=== PATIENT | male | born 1945 | race Caucasian/White ===

== ENCOUNTER 2020-04-14 10:16 | Emergency (ER) | payer MEDICARE, SELFPAY ==
[2020-04-14 10:19] VITALS: PULSE 125; RESP 28; TEMP 36.4; O2SAT 98; BMI 22.5
--- NOTE | 2020-04-14 10:23 | XR_ITS ---
WS: [id number] XR chest 1V portable [id number] REASON FOR EXAM: dyspnea FINDINGS: Comparisons were made to May 11, 2019. The heart mediastinum were normal. The lung rangel are adequately aerated No pneumonia, pleural effusion, pulmonary edema, or pneumothorax. XR/XR chest 1V portable [id number] IMPRESSION: Negative chest.
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
[2020-04-14 10:28] VITALS: O2SAT 96
[2020-04-14 10:32] VITALS: PULSE 105; RESP 26; O2SAT 98
[2020-04-14] MEDS: ipratropium-albuterol 3 mL Neb INHALATION ×2 (10:32)
[2020-04-14 10:35] LABS: Basophils % 0.5 %; Eosinophils # 0.1 10^3/uL (0.0-0.8); Eosinophils % 0.7 %; Hematocrit 44.2 % (42.0-52.0); Hemoglobin 14.6 g/dL (11.7-16.6); Lymphocytes # 1.2 10^3/uL (0.8-4.8); Mean Corpuscular Volume 90.9 fL (80-94); Mean Platelet Volume 10.1 fL (7.4-10.4); Monocytes # 0.5 10^3/uL (0.2-0.9); Monocytes % 6.5 %; Neutrophils # 6.3 10^3/uL (1.8-7.7); Neutrophils % 76.6 %; Nucleated Red Blood Cells % 0 %; Platelet Count 263 10^3/cmm (130-400); Red Blood Count 4.86 10^6/uL (4.1-5.3); White Blood Count 8.2 10^3/uL (4.0-10.0)
[2020-04-14 10:40] VITALS: PULSE 102; RESP 20; O2SAT 100
[2020-04-14 10:42] VITALS: PULSE 103
--- NOTE | 2020-04-14 10:46 | PC.NURSE ---
pt upset and yanking mask and wires off. pt verbally abusive towards staff saying let me just get the fuck out of here . pt's IV removed. Pt signed AMA paperwork. ER physician notified.
[2020-04-14 10:49] LABS: Lactic Sepsis W/Reflex 1.8 mmol/L (0.5-2.2)
== END 2020-04-14 10:49 | disposition left against medical advice (07) ==
LOC: ER 05-08 05:30
PROVIDERS: Emergency Provider Family Medicine
DX: R06.02 Shortness of breath (principal); R07.9 Chest pain, unspecified; R05 Cough; J44.9 Chronic obstructive pulmonary disease, unspecified; Z87.891 Personal history of nicotine dependence; Z53.21 Procedure and treatment not carried out due to patient leaving prior to being seen by health care provider
CPT/HCPCS: 12345; 71045; 83605; 85025; 87040; 94640; 94660; 99283

== ENCOUNTER 2020-12-26 12:42 | Outpatient (CLI) | payer MEDICARE, SELFPAY ==
--- NOTE | 2020-12-26 13:01 | MR_ITS ---
WS: [id number] MRA ANGIOGRAPHY [place] OF [place] HISTORY: TIA COMPARISON: None available. TECHNIQUE: 3-D MR angiography is performed of the [place] of [place]. All images are reviewed including source images. Distal vertebral and basilar arteries are intact with no significant stenosis or plaque. Posterior ce rebral arteries are normal course and caliber. Posterior communicating arteries are both patent. Intracranial portion of the internal carotid arteries are normal course and caliber. No significant a therosclerosis, stenosis or aneurysm identified. There is a tiny protrusion from the distal LEFT intr acranial ICA near the supraclinoid carotid. Similar as to 07/28/2015 CT exam. Stable in size and may r epresent a very tiny aneurysm. Due to its small size this is difficult to quantify or classify furthe r. Middle and anterior cerebral arteries are both patent with no significant disease. Anterior commun icating artery is also normal. Mild cerebral atrophy. MR/MR angio head wo con [id number] IMPRESSION: No occlusions or significant stenosis or aneurysm.
--- NOTE | 2020-12-26 13:01 | MR_ITS ---
WS: [id number] MRA CAROTID ARTERIES HISTORY: TIA COMPARISON: None available. TECHNIQUE: MRA is performed without intravenous gadolinium. MIP and source images are reviewed. Quality of this examination is limited without IV contrast. Vertebral arteries appear to be intact wi th no occlusion. The proximal and distal vertebral arteries are not included. Right: Very limited evaluation of the carotid arteries. Grossly no occlusion is evident. There is sig nificant venous overlapping. Small amount of plaque at the bifurcation is probably present but no hig h-grade stenosis. Left: Very limited evaluation of the carotid arteries. No abnormality or stenosis identified. Only a small portion of the vertebral arteries are imaged. MR/MR angio neck wo con [id number] IMPRESSION: 1. Significantly limited evaluation of the carotid arteries and vertebral ho edd due to [id number] imaging only. 2. No high-grade stenosis identified at the bifurcations.
== END 2020-12-26 12:43 | disposition home or self-care (01) ==
LOC: RADSHAW 12:51
PROVIDERS: PCP Physician Assistant; Visit Provider Physician Assistant
DX: G45.9 Transient cerebral ischemic attack, unspecified (principal)
CPT/HCPCS: 70544; 70547

== ENCOUNTER 2021-03-16 20:09 | Emergency (ER) | payer MEDICARE, SELFPAY ==
[2021-03-16 21:05] VITALS: BP 90/59; PULSE 88; RESP 16; TEMP 36.7; O2SAT 94; BMI 21.9
--- NOTE | 2021-03-16 21:27 | CTR_ITS ---
PROCEDURE INFORMATION: Exam: CT Lumbar Spine Without Contrast Exam date and time: 03/16/2021 9:35 PM Age: 76 years old Clinical indication: Prior surgery; Patient HX: Chronic low back pain. History of back surgery. TECHNIQUE: Imaging protocol: Computed tomography images of the lumbar spine without contrast. COMPARISON: No relevant prior studies available. RADIATION DOSE METRICS: Total DLP (mGy-cm): 1965.46 FINDINGS: Vertebrae: There are 5 lumbar type vertebral bodies. There is normal vertebral body alignment. Schmorl's node at the superior endplate of L4. There are normal vertebral body heights. There is severe disc space narrowing throughout the lumbar spine. No fracture. T12-L1: Broad-based disc protrusion mildly narrows the central canal. No foraminal stenosis. L1-L2: There is mild canal stenosis secondary to disc protrusion plus osteophyte formation. Osteophyte formation severely narrows the right neural foramen. L2-L3: Mild-moderate canal stenosis secondary to broad-based disc protrusion plus facet and ligamentum flavum hypertrophy. Facet hypertrophy and endplate hypertrophy result in moderate right neural foraminal stenosis. L3-L4: Broad-based disc protrusion results in moderate to severe canal stenosis. Facet hypertrophy results in mild-moderate bilateral neural foraminal narrowing. L4-L5: Facet hypertrophy plus endplate hypertrophy and disc protrusion result in moderate canal stenosis. Facet hypertrophy results in severe left and mild right neural foraminal narrowing. L5-S1: Disc plus osteophyte result in mild-moderate canal stenosis. Facet hypertrophy results in moderate bilateral foraminal narrowing. Soft tissues: Unremarkable. CT/CT lumbar spine wo con* [id number] IMPRESSION: Severe degenerative disc disease. No fracture. Radiation Dose CTDIVOL = (mGy): DLP = 1966.46 (mGy-cm)
[2021-03-16 21:47] VITALS: BP 141/88; PULSE 90; RESP 18; TEMP 36.7; O2SAT 96
[2021-03-16] MEDS: dexamethasone 10 mg/mL INJ IVP (21:54)
[2021-03-16 21:55] VITALS: RESP 18; O2SAT 96
[2021-03-16] MEDS: morphine 4 mg/mL SDV 1 mL IVP (21:55)
[2021-03-16 22:02] VITALS: BP 123/72; PULSE 90; RESP 18; TEMP 36.7; O2SAT 96
[2021-03-16 22:08] LABS: Basophils # 0.1 10^3/uL (0.0-0.1); Basophils % 0.5 %; Eosinophils # 0.1 10^3/uL (0.0-0.8); Eosinophils % 0.8 %; Hematocrit 47.5 % (42.0-52.0); Hemoglobin 15.3 g/dL (11.7-16.6); Lymphocytes # 1.5 10^3/uL (0.8-4.8); Lymphocytes % 16.2 %; Mean Corpuscular HGB Conc 32.2 g/dL (30.0-36.0); Mean Corpuscular Hemoglobin 29.4 pg (28.0-34.0); Mean Corpuscular Volume 91.3 fL (80-94); Mean Platelet Volume 9.9 fL (7.4-10.4); Monocytes # 0.7 10^3/uL (0.2-0.9); Monocytes % 7.8 %; Neutrophils # 6.76 10^3/uL (1.8-7.7); Neutrophils % 74.3 %; Nucleated Red Blood Cells % 0 %; Platelet Count 243 10^3/cmm (130-400); Red Cell Distribution Width 14.6 % (12.1-15.1); White Blood Count 9.1 10^3/uL (4.0-10.0)
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
[2021-03-16 22:28] LABS: Alanine Aminotransferase 12 U/L (0-41); Albumin Level 4.5 g/dL (3.5-5.2); Alkaline Phosphatase 47 IU/L (40-130); Aspartate Amino Transferase 13 U/L (0-40); Blood Urea Nitrogen 17 mg/dL (8-23); Calcium 8.8 mg/dL (8.5-10.5); Carbon Dioxide 21 mmol/L (22-29); Chloride 104 mmol/L (98-107); Globulin 2.5 g/dL (1.3-4.6); Glucose 73 mg/dL (65-115); Osmolality Calculated 288 mOsm/kg (285-295); Sodium 139 mmol/L (136-145); Total Bilirubin 0.3 mg/dL (0.15-1.2)
[2021-03-16 22:33] LABS: Anion Gap 18.2 (5-19); Potassium 4.2 mmol/L (3.5-5.1)
[2021-03-16 23:00] VITALS: BP 98/54; PULSE 90; RESP 18; TEMP 36.7; O2SAT 96
[2021-03-16 23:06] VITALS: BP 98/54; PULSE 90; RESP 18; TEMP 36.7; O2SAT 96
== END 2021-03-16 23:08 | disposition home or self-care (01) ==
PROVIDERS: Emergency Provider Emergency Medicine; PCP Physician Assistant
DX: M54.5 Low back pain (principal); F32.9 Major depressive disorder, single episode, unspecified; J44.9 Chronic obstructive pulmonary disease, unspecified; Z87.891 Personal history of nicotine dependence
CPT/HCPCS: 72131; 80053; 85025; 96374; 96375; 99283; J1100; J2270

== ENCOUNTER 2021-03-24 11:32 | Emergency (ER) | payer MEDICARE, SELFPAY ==
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
--- NOTE | 2021-03-24 12:22 | USCV_ITS ---
JohnieRolando Age: 76 Gender: M : 1945 Exam Date: 03/24/2021 12:38 Ordering Phys: Tamara Andrew Technologist: Sharda Kate Exam Location: [facility] [place]_ Indication: LLE PAIN HISTORY: Lower extremity pain. PROCEDURES: Venous duplex imaging was performed in only the left lower extremity. The following venous structures were evaluated: common femoral vein, profunda vein, proximal portion of the greater saphenous vein, superficial femoral vein, and the popliteal vein. In addition, the posterior tibial and peroneal trunk were evaluated. Serial compression, augmentation maneuvers, and spectral Doppler flow evaluation were performed. FINDINGS: Normal 2-D Doppler and augmentation and compressibility throughout the lower extremity venous structures. Additional imaging through the proximal calf veins also reveals no thrombus. Limited evaluation of the greater saphenous vein is patent with no thrombus. CONCLUSIONS No DVT left lower extremity. Dr. Riddhi Jackson DO (Electronically Signed) Final Date: 24 Mar 2021 14:12 S
--- NOTE | 2021-03-24 12:22 | USCV_ITS ---
Johnie Rolando Age: 76 Gender: M : 1945 Exam Date: 03/24/2021 12:44 Ordering Phys: Tamara Andrew Technologist: Sharda Kate Exam Location: [facility] [place]_ Indication: LLE PAIN Risk Factors: Previous Vascular Surgery: RIGHT LEFT BP: 130.0 / BP: 135.0/ 0 0 Waveform Velocity (cm/s) Velocity (cm/s) Waveform Iliac Prox 104.4 Triphasic Iliac Mid 101.3 Triphasic Iliac Distal 109.3 Triphasic IMPLEMENTATION DIRECTOR Triphasic 104.6 SFA Prox 83.5 Triphasic SFA Mid 69.5 Triphasic SFA Dist 62.9 Triphasic POP 29.9 Biphasic ATTRACTION WORKER 33.1 Biphasic DPA 37.4 Biphasic VIOLETA 0.9 FINDINGS LT ATTRACTION WORKER 125 LT DPA 122 Mild to moderate diffuse plaques in the popliteal and infrapopliteal vessels on the left side CONCLUSIONS 1. Abnormal resting VIOLETA on the left side, suggestive of mild peripheral artery disease. 2. Mild to moderate diffuse plaques in the popliteal and infrapopliteal vessels on the left side. Dr Tamiko Maria MD [facility] (Electronically Signed) Final Date: 27 Mar 2021 12:13 S
[2021-03-24 12:23] VITALS: BP 96/79; PULSE 86; RESP 16; TEMP 36.6; O2SAT 98
[2021-03-24 12:27] VITALS: BMI 21.9
[2021-03-24 12:45] VITALS: BP 135/80; PULSE 86; RESP 16; O2SAT 97
== END 2021-03-24 13:08 | disposition home or self-care (01) ==
PROVIDERS: Emergency Provider Physician Assistant; PCP Physician Assistant
DX: M79.605 Pain in left leg (principal); J44.9 Chronic obstructive pulmonary disease, unspecified; Z87.891 Personal history of nicotine dependence
CPT/HCPCS: 93926; 93971; 99282

== ENCOUNTER 2021-03-26 09:45 | Emergency (ER) | payer MEDICARE, SELFPAY ==
[2021-03-26 09:46] VITALS: PULSE 76; RESP 22; O2SAT 100; BMI 21.9
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
[2021-03-26] MEDS: ketorolac 30 mg/mL INJ IM (10:07)
[2021-03-26] MEDS: dexamethasone 10 mg/mL INJ IM (10:07)
[2021-03-26] MEDS: orphenadrine 30 mg/mL Inj 2 mL 60 MG IM (10:07)
[2021-03-26] MEDS: HYDROcodone-acetaminophen 5-325 mg Tablet 1 TAB PO (10:07)
[2021-03-26 11:03] VITALS: BP 126/83; PULSE 76; O2SAT 96
== END 2021-03-26 11:04 | disposition home or self-care (01) ==
PROVIDERS: Emergency Provider Emergency Medicine; PCP Physician Assistant
DX: M54.32 Sciatica, left side (principal); J44.9 Chronic obstructive pulmonary disease, unspecified; Z87.891 Personal history of nicotine dependence
CPT/HCPCS: 96372; 99283; J1100; J1885; J2360

== ENCOUNTER 2021-03-27 12:27 | Emergency (ER) | payer MEDICARE, SELFPAY ==
[2021-03-27 12:36] VITALS: BP 120/76; PULSE 86; RESP 40; TEMP 36.8; O2SAT 99; BMI 21.9
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
[2021-03-27 13:14] VITALS: RESP 18
[2021-03-27] MEDS: morphine 4 mg/mL SDV 1 mL IM (13:14)
[2021-03-27] MEDS: ketorolac 30 mg/mL INJ IM (13:14)
[2021-03-27] MEDS: dexamethasone 10 mg/mL INJ IM (13:15)
[2021-03-27] MEDS: orphenadrine 30 mg/mL Inj 2 mL 60 MG IM (13:15)
[2021-03-27 13:50] VITALS: BP 121/70; PULSE 82; RESP 18; O2SAT 99
== END 2021-03-27 13:52 | disposition home or self-care (01) ==
PROVIDERS: Emergency Provider Family Medicine; PCP Physician Assistant
DX: M54.30 Sciatica, unspecified side (principal); J44.9 Chronic obstructive pulmonary disease, unspecified; Z87.891 Personal history of nicotine dependence
CPT/HCPCS: 96372; 99283; J1100; J1885; J2270; J2360

== ENCOUNTER 2021-04-01 10:53 | Emergency (ER) | payer MEDICARE, SELFPAY ==
[2021-04-01 11:04] VITALS: BP 119/77; PULSE 80; RESP 29; TEMP 36.4; O2SAT 97; BMI 21.9
--- NOTE | 2021-04-01 11:24 | XRR_ITS ---
PROCEDURE INFORMATION: Exam: XR Chest Exam date and time: 04/01/2021 11:26 AM Age: 76 years old Clinical indication: Sternal or substernal pain; Additional info: Sob/anxiety, chest pain and pain in left arm. TECHNIQUE: Imaging protocol: XR of the chest. Views: 1 view. COMPARISON: CR XR chest 1V portable [id number] 04/14/2020 10:34 AM FINDINGS: Lungs: Unremarkable. No consolidation. Pleural spaces: Unremarkable. No pleural effusion. No pneumothorax. Heart/Mediastinum: Unremarkable. No cardiomegaly. Bones/joints: Unremarkable. XR/XR chest 1V portable [id number] IMPRESSION: No acute findings.
--- NOTE | 2021-04-01 11:25 | ECG_ITS ---
[facility] Test Date: 2021-04-01 Pat Name: Rolando Jett Department: Room: Gender: Male Fiscal Services Manager: : 1945 Requested By: Josafat Otero Order Number: [id number] Reading MD: NIURKA EWING Measurements Intervals [place] Rate: 68 P: 64 NM: 173 QRS: 38 QRSD: 88 T: 45 QT: 356 QTc: 381 Interpretive Statements SINUS RHYTHM WITH OCCASIONAL SUPRAVENTRICULAR PREMATURE COMPLEXES IN A BIGEMINAL PATTERN LOW QRS VOLTAGE IN PRECORDIAL LEADS [QRS DEFLECTION < 1.0 mV IN CHEST LEADS] ABNORMAL RHYTHM ECG Compared to ECG 09/16/2018 11:19:47 Low QRS voltage now present Sinus tachycardia no longer present T-wave abnormality no longer present Electronically Signed On 04-01-2021 20:19:33 CDT by NIURKA EWING [email or web address]
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
[2021-04-01 12:11] LABS: Basophils % 0.2 %; Eosinophils # 0.1 10^3/uL (0.0-0.8); Eosinophils % 0.8 %; Hematocrit 42.2 % (42.0-52.0); Hemoglobin 13.9 g/dL (11.7-16.6); Lymphocytes # 2.5 10^3/uL (0.8-4.8); Lymphocytes % 27.5 %; Mean Corpuscular HGB Conc 32.9 g/dL (30.0-36.0); Mean Corpuscular Hemoglobin 29.7 pg (28.0-34.0); Mean Corpuscular Volume 90.2 fL (80-94); Mean Platelet Volume 9.7 fL (7.4-10.4); Monocytes # 0.7 10^3/uL (0.2-0.9); Monocytes % 7.4 %; Neutrophils # 5.67 10^3/uL (1.8-7.7); Nucleated Red Blood Cells % 0 %; Platelet Count 260 10^3/cmm (130-400); Red Blood Count 4.68 10^6/uL (4.1-5.3); Red Cell Distribution Width 14.6 % (12.1-15.1)
[2021-04-01 12:21] VITALS: RESP 15
[2021-04-01 12:30] LABS: Troponin(5th) Baseline 11 ng/L (0-15)
[2021-04-01] MEDS: ibuprofen 800 mg tablet PO (12:36)
[2021-04-01 12:38] LABS: Acetaminophen 10.3 ug/mL (10-30); Alanine Aminotransferase 33 U/L (0-41); Albumin Level 3.7 g/dL (3.5-5.2); Alkaline Phosphatase 48 IU/L (40-130); Aspartate Amino Transferase 16 U/L (0-40); Blood Urea Nitrogen 14 mg/dL (8-23); Calcium 8.3 mg/dL (8.5-10.5); Carbon Dioxide 24 mmol/L (22-29); Chloride 103 mmol/L (98-107); Globulin 1.8 g/dL (1.3-4.6); Glucose 92 mg/dL (65-115); NT Pro B Type Natriuretic Pept 138 pg/mL (0-125); Osmolality Calculated 282 mOsm/kg (285-295); Sodium 136 mmol/L (136-145); Total Bilirubin 0.2 mg/dL (0.15-1.2); Total Protein 5.5 g/dL (6.6-8.7)
[2021-04-01 12:45] LABS: Alcohol Level < 10 mg/dL (0-10); Salicylate < 0.3 mg/dL (3-10)
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
[2021-04-01 14:07] VITALS: RESP 15
== END 2021-04-01 14:07 | disposition home or self-care (01) ==
PROVIDERS: Emergency Provider Emergency Medicine; PCP Physician Assistant
DX: R45.851 Suicidal ideations (principal); J44.9 Chronic obstructive pulmonary disease, unspecified; Z87.891 Personal history of nicotine dependence; F41.8 Other specified anxiety disorders; F31.9 Bipolar disorder, unspecified; Z79.891 Long term (current) use of opiate analgesic
CPT/HCPCS: 71045; 80053; 80307; 83880; 84484; 85025; 93005; 99284

== ENCOUNTER 2021-04-02 03:14 | Emergency (ER) | payer MEDICARE, SELFPAY ==
[2021-04-02 03:16] VITALS: BP 144/70; PULSE 70; RESP 31; TEMP 36.6; O2SAT 100; BMI 21.9
[2021-04-02 03:22] VITALS: PULSE 72; RESP 26; O2SAT 99
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
[2021-04-02 03:50] VITALS: PULSE 70; RESP 26; O2SAT 95
[2021-04-02] MEDS: ipratropium-albuterol 3 mL Neb INHALATION (03:50)
[2021-04-02] MEDS: LORazepam 2 mg/mL INJ 1 mL 1.5 MG IVP (03:54)
[2021-04-02] MEDS: haloperidol inj 5 mg/mL INJ 1 mL 3 MG IVP (03:56)
[2021-04-02 04:21] VITALS: BP 133/77; PULSE 83; RESP 17; O2SAT 96
[2021-04-02 04:30] VITALS: BP 129/79; PULSE 83; RESP 21; O2SAT 98
[2021-04-02 05:53] VITALS: BP 127/78; PULSE 72; RESP 16; TEMP 36.6; O2SAT 96
== END 2021-04-02 05:53 | disposition home or self-care (01) ==
PROVIDERS: Emergency Provider Emergency Medicine; PCP Physician Assistant
DX: F41.0 Panic disorder [episodic paroxysmal anxiety] (principal); R06.4 Hyperventilation; J44.9 Chronic obstructive pulmonary disease, unspecified; Z87.891 Personal history of nicotine dependence
CPT/HCPCS: 94640; 96372; 96374; 96375; 99283; J1630; J2060

== ENCOUNTER 2021-04-02 13:53 | Emergency (ER) | payer MEDICARE, SELFPAY ==
[2021-04-02 13:57] VITALS: BP 143/88; PULSE 75; RESP 18; TEMP 37.2; O2SAT 99; BMI 21.9
[2021-04-02 14:07] VITALS: BP 143/88; PULSE 76; RESP 24; O2SAT 98
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
[2021-04-02] MEDS: haloperidol inj 5 mg/mL INJ 1 mL 2.5 MG IM (14:29)
[2021-04-02] MEDS: LORazepam 2 mg/mL INJ 1 mL 1 MG IM (14:30)
[2021-04-02] MEDS: acetaminophen 325 mg Tablet 650 MG PO (14:30)
--- NOTE | 2021-04-02 15:03 | PC.NURSE ---
Pt demanding and very vocal. Wants to go Home, states I'll call a Cab
[2021-04-02 15:13] VITALS: BP 140/78; PULSE 76; RESP 24; TEMP 37.2; O2SAT 98
== END 2021-04-02 15:14 | disposition home or self-care (01) ==
PROVIDERS: Emergency Provider Family Medicine; PCP Physician Assistant
DX: F41.0 Panic disorder [episodic paroxysmal anxiety] (principal); J44.9 Chronic obstructive pulmonary disease, unspecified; Z87.891 Personal history of nicotine dependence
CPT/HCPCS: 96372; 99283; J1630; J2060

== ENCOUNTER 2021-04-03 10:32 | Emergency (ER) | payer MEDICARE, SELFPAY ==
[2021-04-03 10:37] VITALS: BP 134/94; PULSE 80; RESP 28; TEMP 36.8; O2SAT 100; BMI 21.9
[2021-04-03 10:43] VITALS: RESP 15
[2021-04-03] MEDS: LORazepam 2 mg/mL INJ 1 mL 1 MG IM ×2 (10:46→11:07)
[2021-04-03 10:54] LABS: Alveolar-Arterial Oxygen Gradi 60.5 mmHg (5-10); Arterial Blood Gas Hematocrit 47.5 % (42-52); Base Excess ABG 1.3 mmol/L (-2.0-2.0); Blood Gas Operator Identificat AMH; Blood Gas Sample Site Brachial, right; Blood Gas Sample Type Arterial; Carboxyhemoglobin < 0.0 %THgb (0.4-20.1); HCO3 ABG 19.5 mmol/L (22-26); HGB O2 Sat 97.6 % (95-100); Ionized Calcium Level - ABG 1.2 mmol/L (1.1-1.4); Methemoglobin 0.8 % (0.4-1.5); Oxygen Device NRB; Oxygen Saturation ABG 98.1; Potassium Level - ABG 3.9 mmol/L (3.5-5.0); Total Hemoglobin 15.5 g/dL (14-18)
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
[2021-04-03 10:55] LABS: ABG PCO2 18.5 mmHg (35-45); ABG PH Result 7.63 (7.35-7.45)
[2021-04-03 11:27] VITALS: RESP 15
== END 2021-04-03 11:27 | disposition home or self-care (01) ==
PROVIDERS: Emergency Provider Family Medicine; PCP Physician Assistant
DX: F41.9 Anxiety disorder, unspecified (principal); R06.4 Hyperventilation; J44.9 Chronic obstructive pulmonary disease, unspecified; Z87.891 Personal history of nicotine dependence
CPT/HCPCS: 36600; 80051; 82330; 82805; 96372; 99283; J2060

== ENCOUNTER 2021-04-04 08:56 | Emergency (ER) | payer MEDICARE, SELFPAY ==
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
[2021-04-04 09:10] VITALS: BP 133/89; PULSE 73; RESP 32; TEMP 36.6; O2SAT 99; BMI 23.5
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
[2021-04-04] MEDS: LORazepam 2 mg/mL INJ 1 mL IM (09:22)
[2021-04-04 09:36] LABS: ABG PCO2 23.6 mmHg (35-45); ABG PH Result 7.55 (7.35-7.45); Alveolar-Arterial Oxygen Gradi 6.8 mmHg (5-10); Arterial Blood Gas Hematocrit 46.9 % (42-52); Base Excess ABG 0.3 mmol/L (-2.0-2.0); Blood Gas Allen Test Pos; Blood Gas Operator Identificat CAK; Blood Gas Sample Site Radial, left; Blood Gas Sample Type Arterial; HCO3 ABG 20.7 mmol/L (22-26); HGB O2 Sat 93.6 % (95-100); Ionized Calcium Level - ABG 1.2 mmol/L (1.1-1.4); Methemoglobin 0.8 % (0.4-1.5); Oxygen Device ROOM AIR; Oxygen Saturation ABG 94.3; Potassium Level - ABG 4.2 mmol/L (3.5-5.0); Total Hemoglobin 15.3 g/dL (14-18)
[2021-04-04 10:22] VITALS: RESP 24
== END 2021-04-04 10:18 | disposition home or self-care (01) ==
PROVIDERS: Emergency Provider Family Medicine; PCP Physician Assistant
DX: F41.9 Anxiety disorder, unspecified (principal); M54.30 Sciatica, unspecified side; R06.4 Hyperventilation; J44.9 Chronic obstructive pulmonary disease, unspecified; Z87.891 Personal history of nicotine dependence; G89.29 Other chronic pain
CPT/HCPCS: 36600; 73502; 73552; 80051; 82330; 82805; 96372; 99282; 99283; J2060

== ENCOUNTER 2021-04-04 15:44 | Emergency (ER) | payer MEDICARE, SELFPAY ==
[2021-04-04 16:01] VITALS: BP 124/79; PULSE 85; RESP 18; TEMP 36.7; O2SAT 98; BMI 25.0
[2021-04-04 16:23] VITALS: O2SAT 100
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
== END 2021-04-04 17:21 | disposition home or self-care (01) ==
PROVIDERS: Emergency Provider Emergency Medicine; PCP Physician Assistant
DX: F41.9 Anxiety disorder, unspecified (principal); G89.29 Other chronic pain; J44.9 Chronic obstructive pulmonary disease, unspecified; Z87.891 Personal history of nicotine dependence
CPT/HCPCS: 99282

== ENCOUNTER 2021-04-05 09:55 | Emergency (ER) | payer MEDICARE, SELFPAY ==
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
[2021-04-05 10:01] VITALS: PULSE 85; RESP 26; O2SAT 100; BMI 21.9
[2021-04-05 10:08] VITALS: BP 152/96; PULSE 86; O2SAT 100
--- NOTE | 2021-04-05 10:09 | ECG_ITS ---
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 Measurements Intervals [place] Rate: 76 P: 67 MT: 155 QRS: 51 QRSD: 90 T: 62 QT: 355 QTc: 399 Interpretive Statements SINUS RHYTHM Compared to ECG 04/01/2021 12:02:54 No significant changes Electronically Signed On 04-05-2021 16:27:34 CDT by Lynn Feliciano M.D. [email or web address]
[2021-04-05] MEDS: LORazepam 2 mg Tablet PO (10:44)
[2021-04-05 10:48] LABS: Basophils % 0.3 %; Eosinophils # 0.1 10^3/uL (0.0-0.8); Eosinophils % 1.2 %; Hematocrit 42.5 % (42.0-52.0); Hemoglobin 14.9 g/dL (11.7-16.6); Lymphocytes # 1.4 10^3/uL (0.8-4.8); Lymphocytes % 21.3 %; Mean Corpuscular HGB Conc 35.1 g/dL (30.0-36.0); Mean Corpuscular Hemoglobin 29.9 pg (28.0-34.0); Mean Corpuscular Volume 85.3 fL (80-94); Mean Platelet Volume 9.4 fL (7.4-10.4); Monocytes # 0.7 10^3/uL (0.2-0.9); Monocytes % 10.7 %; Neutrophils # 4.42 10^3/uL (1.8-7.7); Neutrophils % 66.1 %; Nucleated Red Blood Cells % 0 %; Platelet Count 253 10^3/cmm (130-400); Red Blood Count 4.98 10^6/uL (4.1-5.3); Red Cell Distribution Width 14.1 % (12.1-15.1); White Blood Count 6.7 10^3/uL (4.0-10.0)
[2021-04-05 11:07] LABS: Add Urine Microscopic? NO
[2021-04-05 11:08] LABS: Bilirubin Urine Neg (Negative); Blood Urine Neg (Negative); Glucose Urine UA Norm (Normal); Ketones Urine 1+ (Negative); Leukocyte Esterase Urine Negative (Negative); Nitrate Urine Negative (Negative); Protein Urine Neg (Negative); Urine Appearance Clear (CLEAR); Urine Color Yellow (Yellow); Urobilinogen Urine Norm (Negative); pH Urine 7 (5-7)
[2021-04-05 11:10] LABS: Charge for UA Resulting for Rev
[2021-04-05 11:12] LABS: Alanine Aminotransferase 23 U/L (0-41); Albumin Level 4.4 g/dL (3.5-5.2); Alkaline Phosphatase 49 IU/L (40-130); Anion Gap 20.3 (5-19); Aspartate Amino Transferase 17 U/L (0-40); Blood Urea Nitrogen 8 mg/dL (8-23); Calcium 8.3 mg/dL (8.5-10.5); Carbon Dioxide 19 mmol/L (22-29); Chloride 96 mmol/L (98-107); Globulin 1.5 g/dL (1.3-4.6); Glucose 99 mg/dL (65-115); Osmolality Calculated 270 mOsm/kg (285-295); Potassium 4.3 mmol/L (3.5-5.1); Sodium 131 mmol/L (136-145); Thyroid Stimulating Hormone 0.26 uIU/mL (0.27-4.20); Total Bilirubin 0.5 mg/dL (0.15-1.2); Total Protein 5.9 g/dL (6.6-8.7)
[2021-04-05 11:16] LABS: Amphetamines Screen Urine Positive (Negative); Barbiturates Screen Urine Negative (Negative); Benzodiazepines Screen Urine Positive (Negative); Cocaine Screen Urine Negative (Negative); Opiate Screen Urine Negative (Negative); PCP Screen Urine Negative (Negative); THC Screen Urine Negative (Negative)
[2021-04-05 11:26] LABS: Acetaminophen < 5.0 ug/mL (10-30); Alcohol Level < 10 mg/dL (0-10); Salicylate < 0.3 mg/dL (3-10)
[2021-04-05 12:22] VITALS: BP 142/83; PULSE 85; O2SAT 100
== END 2021-04-05 12:24 | disposition home or self-care (01) ==
PROVIDERS: Emergency Provider Family Medicine; PCP Physician Assistant
DX: F41.9 Anxiety disorder, unspecified (principal); F41.0 Panic disorder [episodic paroxysmal anxiety]; J44.9 Chronic obstructive pulmonary disease, unspecified; Z87.891 Personal history of nicotine dependence; Z79.899 Other long term (current) drug therapy
CPT/HCPCS: 80053; 80306; 80307; 81003; 84443; 85025; 93005; 99283

== ENCOUNTER 2021-04-06 08:04 | Emergency (ER) | payer MEDICARE, SELFPAY ==
[2021-04-06 08:08] VITALS: BP 130/82; PULSE 76; RESP 16; TEMP 36.6; O2SAT 98; BMI 22.5
[2021-04-06 08:13] VITALS: BP 130/82; PULSE 76; O2SAT 98
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
[2021-04-06] MEDS: LORazepam 2 mg/mL INJ 1 mL IM (08:26)
--- NOTE | 2021-04-06 08:40 | ECG_ITS ---
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 Measurements Intervals [place] Rate: 71 P: 65 MT: 172 QRS: 36 QRSD: 91 T: 54 QT: 359 QTc: 391 Interpretive Statements SINUS RHYTHM Compared to ECG 04/05/2021 10:25:43 No significant changes Electronically Signed On 04-06-2021 17:05:22 CDT by Vineet Schroeder M.D. [id number]
[2021-04-06 09:23] VITALS: BP 120/78; PULSE 67; O2SAT 95
--- NOTE | 2021-04-06 17:12 | PC.CHAP ---
Pastoral Care Encounter/Spiritual Assessment Type of Contact [] Declined photo finish photographer visit [x] Patient/Family/Request visit [] Outpatient visit [] Follow-up visit [] Physician referral [] Code/Alert [] Routine visit [] Staff referral [] Actively dying [] Patient sleeping [] Family support [] [] Out of room [] Palliative care [] [] Receiving care in room [] Pre-surgical visit [] Trauma [] Long length of stay [] ICU visit [x] Other: ED Relational/Emotional Strength [] Patient feels connected with others/family/visitors/staff [x] Distress [] Loneliness/isolation [] Abandonment Spirituality of Patient [] Person of Chelsey [] Attends Bahai of their Chelsey [] Believes in Prayer [] Reads Bible or Taoism materials [x] There are Spiritual issues to be addressed Jewelry Coater Interventions [] Prayer [x] Active listening [x] Non-anxious presence [x] Spiritual/emotional support [] Crisis/trauma care [] Spiritual counseling [] Bereavement support [] Provided bereavement packet [] Provided Bible/devotional materials [] Provided toy/stuffed animal, coloring book to patient or family member [] Provided Communion [] Anointing/[place] [] Salvation [x] Completed spiritual assessment [x] Other: Jewelry Coater called patients daughter. Impact on Illness or Injury [] Angry [x] Fearful [x] Anxious [] Often cries [] Exhaustion [] Unable to work [] Unable to attend pentecostalism [] Unable to walk/stand [] Unable to read [] Unable to drive [] Unable to eat/drink [] Unable to sleep [] Unable to be with family [] Patient intubated [] Other: Summary Patient asks photo finish photographer to contact his daughter and have her put his dog Parris in the back yard. He was concerned about his daughter and the safety of his dog. Patient stated that if he knew that they were alright he could calm down. Jewelry Coater talked with daughter and then reported to patient that all was fine with his daughter and dog Parris. Time spent with patient 15 min
== END 2021-04-06 09:24 | disposition home or self-care (01) ==
PROVIDERS: Emergency Provider Physician Assistant; PCP Physician Assistant
DX: F41.9 Anxiety disorder, unspecified (principal); J44.9 Chronic obstructive pulmonary disease, unspecified; Z87.891 Personal history of nicotine dependence
CPT/HCPCS: 93005; 96372; 99283; J2060

== ENCOUNTER 2021-04-06 11:12 | Emergency (ER) | payer MEDICARE, SELFPAY ==
[2021-04-06 11:19] VITALS: BP 117/77; PULSE 82; RESP 22; TEMP 36.6; O2SAT 98; BMI 22.5
--- NOTE | 2021-04-06 11:51 | ECG_ITS ---
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 Measurements Intervals [place] Rate: 76 P: 122 LA: 161 QRS: 148 QRSD: 87 T: 128 QT: 357 QTc: 402 Interpretive Statements SINUS RHYTHM ARM LEADS REVERSED [INVERTED P AND QRS IN I] Compared to ECG 04/06/2021 08:45:02 No significant changes Electronically Signed On 04-06-2021 17:02:09 CDT by Vineet Schroeder M.D. [id number]
--- NOTE | 2021-04-06 11:52 | CT_ITS ---
WS: [id number] CT HEAD NONCONTRAST HISTORY: confusion, altered mental status TECHNIQUE: Contiguous axial imaging performed through the brain in 2.5 mm imaging. Bone and soft tiss ue windows. Sagittal and coronal reformats reviewed. All CT scans at [facility] use at le ast one of these dose optimization techniques: automated exposure control; mA and/or kV adjustment pe r patient size (includes targeted exams where dose is matched to clinical indication); or iterative r econstruction. DLP: 1035.63 mGy.cm COMPARISON: 07/28/2015 No acute intracranial hemorrhage, midline shift or mass effect. Mild symmetric atrophy. 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 Otherwise mild chronic microvascular ischemic type changes. Ventricles: Normal size with no hydrocephalus. No inferior displacement of cerebellar tonsils. Paranasal sinuses: Mixed density within the LEFT maxillary sinus. Probably due to inspissated mucus m aterial or mucous retention cyst. Mastoid air cells: Well pneumatized. Calvarium and scalp: Skull is intact with no soft tissue edema or swelling. CT/CT head wo con* [id number] IMPRESSION: No acute intracranial hemorrhage or edema. Mild atrophy and chronic ischemic disease.
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
[2021-04-06] MEDS: ketorolac 60 mg/2 mL INJ IM (12:18)
[2021-04-06] MEDS: LORazepam 2 mg/mL INJ 1 mL IM (12:18)
[2021-04-06 12:33] LABS: Amphetamines Screen Urine Positive (Negative); Barbiturates Screen Urine Negative (Negative); Benzodiazepines Screen Urine Positive (Negative); Cocaine Screen Urine Negative (Negative); Opiate Screen Urine Negative (Negative); PCP Screen Urine Negative (Negative); THC Screen Urine Negative (Negative)
[2021-04-06 12:34] LABS: Bilirubin Urine Neg (Negative); Blood Urine Neg (Negative); Glucose Urine UA Norm (Normal); Ketones Urine 1+ (Negative); Leukocyte Esterase Urine Negative (Negative); Nitrate Urine Negative (Negative); Protein Urine Neg (Negative); Specific Gravity, Urine 1.015 (1.005-1.030); Urine Appearance Clear (CLEAR); Urine Color Yellow (Yellow); Urobilinogen Urine Norm (Negative); pH Urine 5 (5-7)
[2021-04-06 13:13] LABS: Basophils % 0.4 %; Eosinophils # 0.1 10^3/uL (0.0-0.8); Eosinophils % 1.2 %; Hematocrit 46.6 % (42.0-52.0); Hemoglobin 15.6 g/dL (11.7-16.6); Lymphocytes # 1.6 10^3/uL (0.8-4.8); Lymphocytes % 15.7 %; Mean Corpuscular HGB Conc 33.5 g/dL (30.0-36.0); Mean Corpuscular Hemoglobin 29.8 pg (28.0-34.0); Mean Corpuscular Volume 89.1 fL (80-94); Mean Platelet Volume 9.6 fL (7.4-10.4); Monocytes # 0.8 10^3/uL (0.2-0.9); Monocytes % 7.6 %; Neutrophils # 7.45 10^3/uL (1.8-7.7); Neutrophils % 74.7 %; Nucleated Red Blood Cells % 0 %; Platelet Count 270 10^3/cmm (130-400); Red Blood Count 5.23 10^6/uL (4.1-5.3); Red Cell Distribution Width 14.3 % (12.1-15.1)
[2021-04-06 13:38] LABS: Acetaminophen < 5.0 ug/mL (10-30); Alanine Aminotransferase 20 U/L (0-41); Albumin Level 4.2 g/dL (3.5-5.2); Alcohol Level < 10 mg/dL (0-10); Alkaline Phosphatase 50 IU/L (40-130); Anion Gap 14.9 (5-19); Aspartate Amino Transferase 15 U/L (0-40); Blood Urea Nitrogen 8 mg/dL (8-23); Calcium 8.4 mg/dL (8.5-10.5); Carbon Dioxide 22 mmol/L (22-29); Chloride 102 mmol/L (98-107); Globulin 2.2 g/dL (1.3-4.6); Glucose 111 mg/dL (65-115); Osmolality Calculated 279 mOsm/kg (285-295); Potassium 3.9 mmol/L (3.5-5.1); Salicylate < 0.3 mg/dL (3-10); Sodium 135 mmol/L (136-145); Thyroid Stimulating Hormone 0.28 uIU/mL (0.27-4.20); Total Bilirubin 0.5 mg/dL (0.15-1.2); Total Protein 6.4 g/dL (6.6-8.7)
[2021-04-06 13:41] LABS: SARS Covid-2 Antigen Negative (Negative)
[2021-04-06] MEDS: OLANZapine 10 mg ODT PO (15:39)
[2021-04-06 15:58] VITALS: BP 115/63; PULSE 92; RESP 20; O2SAT 92
[2021-04-06] MEDS: LORazepam 2 mg/mL INJ 1 mL 1 MG IM (16:31)
--- NOTE | 2021-04-06 17:11 | XRR_ITS ---
PROCEDURE INFORMATION: Exam: XR Chest Exam date and time: 04/06/2021 5:11 PM Age: 76 years old Clinical indication: Screening exam; Other screening; Additional info: Psych clearance TECHNIQUE: Imaging protocol: XR of the chest. Views: 1 view. COMPARISON: CR (CHEST, ) 04/01/2021 11:32 AM FINDINGS: Lungs: Unremarkable. No consolidation. Pleural spaces: Unremarkable. No pleural effusion. No pneumothorax. Heart/Mediastinum: Unremarkable. No cardiomegaly. Bones/joints: Unremarkable. XR/XR chest 1V portable [id number] IMPRESSION: No acute findings.
[2021-04-06 18:38] VITALS: BP 134/81; PULSE 75; RESP 18; O2SAT 97
[2021-04-06 19:59] VITALS: BP 134/81; PULSE 73; RESP 19; O2SAT 99
[2021-04-06 20:52] VITALS: PULSE 61; RESP 17; O2SAT 97
[2021-04-07 00:01] VITALS: BP 132/79; PULSE 63; RESP 18; O2SAT 98
[2021-04-07] MEDS: LORazepam 1 mg Tablet PO ×2 (00:08→03:34)
[2021-04-07] MEDS: haloperidol inj 5 mg/mL INJ 1 mL IM ×2 (00:40→03:34)
[2021-04-07] MEDS: HYDROcodone-acetaminophen 7.5-325 mg Tablet 1 TAB PO (03:34)
[2021-04-07 03:35] VITALS: BP 131/80; PULSE 65; RESP 19; O2SAT 96
--- NOTE | 2021-04-07 04:12 | PC.NURSE ---
Al Saucedo with [facility] called to accept patient to their facility
[2021-04-07 06:39] VITALS: BP 127/79; PULSE 62; RESP 17; O2SAT 97
== END 2021-04-07 07:38 ==
PROVIDERS: Emergency Provider Emergency Medicine; PCP Physician Assistant
DX: F41.9 Anxiety disorder, unspecified (principal); F32.9 Major depressive disorder, single episode, unspecified; R41.0 Disorientation, unspecified; G89.29 Other chronic pain; M54.9 Dorsalgia, unspecified; J44.9 Chronic obstructive pulmonary disease, unspecified; Z87.891 Personal history of nicotine dependence
CPT/HCPCS: 70450; 71045; 80053; 80306; 80307; 81001; 84443; 85025; 87426; 93005; 96372; 99283; 99285; J1630; J1885; J2060

== ENCOUNTER 2021-04-17 12:35 | Emergency (ER) | payer MEDICARE, SELFPAY ==
[2021-04-17 12:36] VITALS: BP 125/84; PULSE 75; RESP 15; TEMP 36.8; O2SAT 99; BMI 22.5
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
--- NOTE | 2021-04-17 12:49 | ECG_ITS ---
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 Measurements Intervals [place] Rate: 75 P: 48 KS: 160 QRS: 20 QRSD: 91 T: 45 QT: 349 QTc: 391 Interpretive Statements SINUS RHYTHM Compared to ECG 04/06/2021 12:38:03 No significant changes Electronically Signed On 04-17-2021 18:50:19 CDT by Tamiko Maria M.D. [id number]
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
[2021-04-17 13:02] LABS: Basophils % 0.4 %; Eosinophils # 0.2 10^3/uL (0.0-0.8); Eosinophils % 1.5 %; Hematocrit 42.9 % (42.0-52.0); Hemoglobin 13.7 g/dL (11.7-16.6); Lymphocytes % 10.2 %; Mean Corpuscular HGB Conc 31.9 g/dL (30.0-36.0); Mean Corpuscular Hemoglobin 29.6 pg (28.0-34.0); Mean Corpuscular Volume 92.7 fL (80-94); Monocytes # 0.5 10^3/uL (0.2-0.9); Monocytes % 5.1 %; Neutrophils # 8.38 10^3/uL (1.8-7.7); Nucleated Red Blood Cells % 0 %; Platelet Count 238 10^3/cmm (130-400); Red Blood Count 4.63 10^6/uL (4.1-5.3); White Blood Count 10.2 10^3/uL (4.0-10.0)
[2021-04-17 13:04] VITALS: PULSE 76; RESP 15; O2SAT 98
[2021-04-17] MEDS: sodium chloride 0.9% 1,000 ML 999 ML IV (13:14)
[2021-04-17 13:37] LABS: Add Urine Microscopic? NO; Charge for UA Resulting for Rev
[2021-04-17 13:38] LABS: Troponin(5th) Baseline 10 ng/L (0-15)
[2021-04-17 13:40] LABS: Bilirubin Urine Neg (Negative); Blood Urine Neg (Negative); Glucose Urine UA Norm (Normal); Ketones Urine Negative (Negative); Leukocyte Esterase Urine Negative (Negative); Nitrate Urine Negative (Negative); Protein Urine Neg (Negative); Specific Gravity, Urine 1.015 (1.005-1.030); Urine Appearance Clear (CLEAR); Urine Color Yellow (Yellow); Urobilinogen Urine Norm (Negative); pH Urine 5 (5-7)
[2021-04-17 13:45] LABS: Alanine Aminotransferase 23 U/L (0-41); Alkaline Phosphatase 59 IU/L (40-130); Aspartate Amino Transferase 14 U/L (0-40); Blood Urea Nitrogen 13 mg/dL (8-23); Calcium 8.6 mg/dL (8.5-10.5); Carbon Dioxide 23 mmol/L (22-29); Chloride 105 mmol/L (98-107); Globulin 1.6 g/dL (1.3-4.6); Glucose 87 mg/dL (65-115); Osmolality Calculated 287 mOsm/kg (285-295); Sodium 139 mmol/L (136-145); Thyroid Stimulating Hormone 0.62 uIU/mL (0.27-4.20); Total Bilirubin 0.2 mg/dL (0.15-1.2); Total Protein 5.6 g/dL (6.6-8.7)
[2021-04-17 13:46] LABS: Acetaminophen < 5.0 ug/mL (10-30); Alcohol Level < 10 mg/dL (0-10); Salicylate < 0.3 mg/dL (3-10)
[2021-04-17 13:47] LABS: Anion Gap 15.6 (5-19); Potassium 4.6 mmol/L (3.5-5.1)
[2021-04-17 13:49] LABS: Amphetamines Screen Urine Negative (Negative); Barbiturates Screen Urine Negative (Negative); Benzodiazepines Screen Urine Positive (Negative); Cocaine Screen Urine Negative (Negative); Opiate Screen Urine Negative (Negative); PCP Screen Urine Negative (Negative); THC Screen Urine Negative (Negative)
[2021-04-17 15:49] VITALS: PULSE 79; RESP 15; O2SAT 96
== END 2021-04-17 16:28 | disposition home or self-care (01) ==
PROVIDERS: Emergency Provider Family Medicine; PCP Physician Assistant
DX: T88.7XXA Unspecified adverse effect of drug or medicament, initial encounter (principal); T42.4X5A Adverse effect of benzodiazepines, initial encounter; J44.9 Chronic obstructive pulmonary disease, unspecified; Z87.891 Personal history of nicotine dependence; T50.901A Poisoning by unspecified drugs, medicaments and biological substances, accidental (unintentional), initial encounter; F41.9 Anxiety disorder, unspecified; N40.0 Benign prostatic hyperplasia without lower urinary tract symptoms
CPT/HCPCS: 36600; 51701; 70450; 71045; 80053; 80306; 80307; 81003; 82803; 84443; 84484; 85025; 93005; 96360; 96372; 99284; J1650; J7030

== ENCOUNTER 2021-04-17 20:36 | Observation (INO) | payer MEDICARE, MEDICAID, SELFPAY ==
[2021-04-17 20:37] VITALS: BP 143/82; PULSE 65; RESP 14; TEMP 36.6; O2SAT 97; BMI 25.0
[2021-04-17 20:45] VITALS: BP 138/75; PULSE 65; RESP 14; O2SAT 98
--- NOTE | 2021-04-17 20:51 | CTR_ITS ---
PROCEDURE INFORMATION: Exam: CT Head Without Contrast Exam date and time: 04/17/2021 8:51 PM Age: 76 years old Clinical indication: Altered mental status/memory loss; Patient HX: AMS, best images possible scan x2; Additional info: Od TECHNIQUE: Imaging protocol: Computed tomography of the head without contrast. Radiation optimization: All CT scans at this facility use at least one of these dose optimization techniques: automated exposure control; mA and/or kV adjustment per patient size (includes targeted exams where dose is matched to clinical indication); or iterative reconstruction. COMPARISON: CT head wo con* [id number] 04/06/2021 12:19 PM RADIATION DOSE METRICS: Total DLP (mGy-cm): 1407.19 FINDINGS: Brain: There are moderate periventricular and subcortical lucencies consistent with chronic microvascular ischemic changes. The magana-white differentiation is maintained. No hemorrhage. No edema. Cerebral ventricles: No ventriculomegaly. Paranasal sinuses: Visualized sinuses are unremarkable. No fluid levels. Mastoid air cells: Visualized mastoid air cells are well aerated. Bones/joints: Unremarkable. No acute fracture. Soft tissues: Unremarkable. Other findings: Streak artifact degrades the images. CT/CT head wo con* [id number] IMPRESSION: No acute intracranial abnormality. Chronic microvascular ischemic changes. Radiation Dose CTDIVOL = (mGy): DLP = 1407.19 (mGy-cm)
[2021-04-17 21:16] LABS: Basophils % 0.2 %; Eosinophils # 0.1 10^3/uL (0.0-0.8); Eosinophils % 1.2 %; Hematocrit 40.4 % (42.0-52.0); Hemoglobin 13.2 g/dL (11.7-16.6); Lymphocytes # 1.6 10^3/uL (0.8-4.8); Lymphocytes % 16.5 %; Mean Corpuscular HGB Conc 32.7 g/dL (30.0-36.0); Mean Corpuscular Hemoglobin 29.9 pg (28.0-34.0); Mean Corpuscular Volume 91.4 fL (80-94); Mean Platelet Volume 10.1 fL (7.4-10.4); Monocytes # 0.7 10^3/uL (0.2-0.9); Monocytes % 7.1 %; Neutrophils # 7.23 10^3/uL (1.8-7.7); Neutrophils % 74.5 %; Nucleated Red Blood Cells % 0 %; Platelet Count 236 10^3/cmm (130-400); Red Blood Count 4.42 10^6/uL (4.1-5.3); Red Cell Distribution Width 15.3 % (12.1-15.1); White Blood Count 9.7 10^3/uL (4.0-10.0)
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
[2021-04-17 21:25] LABS: Amphetamines Screen Urine Negative (Negative); Barbiturates Screen Urine Negative (Negative); Benzodiazepines Screen Urine Positive (Negative); Cocaine Screen Urine Negative (Negative); Opiate Screen Urine Negative (Negative); PCP Screen Urine Negative (Negative); THC Screen Urine Negative (Negative)
[2021-04-17 21:29] VITALS: BP 139/78; PULSE 65; RESP 14; O2SAT 100
[2021-04-17 21:30] LABS: Alanine Aminotransferase 22 U/L (0-41); Albumin Level 3.8 g/dL (3.5-5.2); Alkaline Phosphatase 56 IU/L (40-130); Anion Gap 14.9 (5-19); Aspartate Amino Transferase 14 U/L (0-40); Blood Urea Nitrogen 13 mg/dL (8-23); Calcium 8.8 mg/dL (8.5-10.5); Carbon Dioxide 24 mmol/L (22-29); Chloride 105 mmol/L (98-107); Globulin 2.1 g/dL (1.3-4.6); Glucose 85 mg/dL (65-115); Osmolality Calculated 289 mOsm/kg (285-295); Potassium 3.9 mmol/L (3.5-5.1); Sodium 140 mmol/L (136-145); Total Bilirubin 0.2 mg/dL (0.15-1.2); Total Protein 5.9 g/dL (6.6-8.7)
[2021-04-17 21:35] LABS: Acetaminophen < 5.0 ug/mL (10-30); Alcohol Level < 10 mg/dL (0-10); Salicylate < 0.3 mg/dL (3-10)
[2021-04-17 21:37] LABS: ABG PCO2 43.9 mmHg (35-45); ABG PH Result 7.37 (7.35-7.45); Arterial Blood Gas Hematocrit 39.6 % (42-52); Base Excess ABG -0.2 mmol/L (-2.0-2.0); Blood Gas Allen Test Pos; Blood Gas Sample Site Radial, right; Blood Gas Sample Type Arterial; HCO3 ABG 25.3 mmol/L (22-26); Oxygen Device NC; PO2 ABG 99.4 mmHg (80.0-100.0)
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
[2021-04-17 22:40] VITALS: BP 161/79; PULSE 66; RESP 20; O2SAT 96
[2021-04-17 22:58] VITALS: BMI 24.2
[2021-04-17 23:00] VITALS: BP 132/79; PULSE 69; RESP 16; TEMP 36.6; O2SAT 95
[2021-04-17 23:31] VITALS: PULSE 66; RESP 15; O2SAT 95
[2021-04-17 23:32] LABS: Thyroid Stimulating Hormone 0.66 uIU/mL (0.27-4.20)
--- NOTE | 2021-04-17 23:53 | PC.ADMIT ---
[facility] Admission Note:Admit patient to ICU. Patient lethargic but oriented to person, place, time, et situation. Oriented patient to room and discussed plan of care. Patient verbalized understanding, no questions. The patient,Rolando Jett,76 y/o, was given written information regarding hospital policies, unit procedures and contact persons. Patient's smoking status: former smoker. Vital Signs - 8 hr 04/17/21 20:37 04/17/21 20:45 04/17/21 21:29 Temperature 97.8 F Pulse Rate 65 65 Pulse Rate [Monitor] 65 Respiratory Rate 14 14 14 Blood Pressure 138/75 139/78 Blood Pressure [Right Arm] 143/82 Pulse Oximetry 97 98 100 04/17/21 22:40 04/17/21 23:00 Temperature 97.8 F Pulse Rate 66 69 Pulse Rate [Monitor] Respiratory Rate 20 H 16 Blood Pressure 161/79 132/79 Blood Pressure [Right Arm] Pulse Oximetry 96 95
[2021-04-17] MEDS: enoxaparin 40 mg/0.4 mL Syringe SUBCUT (23:59)
[2021-04-18] VITALS (34 sets, daily range): BP systolic 97–148; BP diastolic 57–96; PULSE 63–103; RESP 14–27; TEMP 36.6–37.1; O2SAT 89–100
--- NOTE | 2021-04-18 04:31 | PC.NURSE ---
Patient complained of pain. Notified Dr. Clayton. Orders received, see DEC.
[2021-04-18] MEDS: oxyCODONE 5 mg IR Tab/Cap PO ×3 (05:09→20:09)
[2021-04-18] MEDS: buPROPion XL (24 HR) 150 mg Tablet PO (08:10)
--- NOTE | 2021-04-18 10:21 | PC.CHAP ---
Pastoral Care Encounter/Spiritual Assessment Type of Contact [] Declined clinical nursing director visit [] Patient/Family/Request visit [] Outpatient visit [] Follow-up visit [] Physician referral [] Code/Alert [x] Routine visit [] Staff referral [] Actively dying [] Patient sleeping [] Family support [] [] Out of room [] Palliative care [] [x] Receiving care in room [] Pre-surgical visit [] Trauma [] Long length of stay [x] ICU visit [] Other: Relational/Emotional Strength [] Patient feels connected with others/family/visitors/staff [] Distress [] Loneliness/isolation [] Abandonment Spirituality of Patient [] Person of Chelsey [] Attends Baptism of their [place]sey [] Believes in Prayer [] Reads Bible or Sabianism materials [] There are Spiritual issues to be addressed Railroad Construction Director Interventions [x] Prayer [] Active listening [] Non-anxious presence [] Spiritual/emotional support [] Crisis/trauma care [] Spiritual counseling [] Bereavement support [] Provided bereavement packet [] Provided Bible/devotional materials [] Provided toy/stuffed animal, coloring book to patient or family member [] Provided Communion [] Anointing/[place] [] Salvation [x] Completed spiritual assessment [] Other: Impact on Illness or Injury [] Angry [] Fearful [] Anxious [] Often cries [] Exhaustion [] Unable to work [] Unable to attend confucianist [] Unable to walk/stand [] Unable to read [] Unable to drive [] Unable to eat/drink [] Unable to sleep [] Unable to be with family [] Patient intubated [] Other: Summary Time spent with patient
[2021-04-18] MEDS: ipratropium-albuterol 3 mL Neb INHALATION ×3 (11:05→20:05)
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
[2021-04-18] MEDS: tamsulosin 0.4 mg Capsule PO (20:09)
[2021-04-18] MEDS: enoxaparin 40 mg/0.4 mL Syringe SUBCUT (23:48)
[2021-04-19] VITALS (18 sets, daily range): BP systolic 102–124; BP diastolic 53–69; PULSE 0–98; RESP 16–24; TEMP 36.5–36.9; O2SAT 93–96
[2021-04-19] MEDS: ipratropium-albuterol 3 mL Neb INHALATION ×3 (02:40→15:17)
[2021-04-19] MEDS: oxyCODONE 5 mg IR Tab/Cap PO ×2 (04:57→16:55)
--- NOTE | 2021-04-19 05:14 | PC.NURSE ---
Nurse dropped solu-medrol push on patient room floor and medication vial broke. Medication wasted in pyxis and re-pulled for administration.
[2021-04-19] MEDS: LORazepam 2 mg/mL INJ 1 mL 1 MG IVP (07:01)
[2021-04-19] MEDS: buPROPion XL (24 HR) 150 mg Tablet PO (08:42)
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
--- NOTE | 2021-04-19 16:00 | PC.NURSE ---
Patient sitter discontinued at this time.
--- NOTE | 2021-04-19 16:26 | PC.NURSE ---
Patient in the shower. Patient was provided paper scrubs to wear home
--- NOTE | 2021-04-19 16:30 | PC.NURSE ---
Called to room 264 because the CLEAN UP WORKER stated that patient was sitting on the floor. Nurse Gracia COLINDRES present in the room. Gracia states, Patient was bent over the toilet coughing and then he lowered himself to his knees and then sat down on his butt. Patient is sitting in the floor coughing. Vitals signs are stable 150/79 blood pressure, 100 heart rate, 18 respirations and 96% oxygen on room air. Patient A&Ox3. Patient got from the floor to the chair and then from the chair to the bed. Dr. Pérez notified at this time.
--- NOTE | 2021-04-19 18:17 | PM.DCS ---
Discharge Providers Date of Admission: 04/17/21 23:12 Date of Discharge: April 19, 2021 Attending Provider at Admission: Tico Clayton MD Attending Provider at Discharge: Latonia Pérez Primary Care Provider: Sharda Montenegro Diagnoses at Discharge Discharge Diagnosis (1) Drug side effects: Status: Acute (2) Drug overdose: Status: Acute Qualifiers: Encounter type: initial encounter Injury intent: accidental or unintentional Qualified Code(s): T50.901A - Poisoning by unspecified drugs, medicaments and biological substances, accidental (unintentional), initial encounter (3) Anxiety disorder: Status: Acute Reason for Visit Reason for Visit: overdose Hospital Course Hospital Course 76-year-old male with a past medical history significant forIron deficiency anemia, cluster headaches, benign prostatic hyperplasia, iron deficiency anemia, chronic obstructive pulmonary disease, anxiety, depression PTSD, on Valium, chronic opioid useWho presented to the hospital after he had accidental drug overdose.Apparently patient was taken additional doses of his Valium at home. He stated he wanted to just get ?high?. denies suicidal ideations.He was admitted to ICU for close observation. At the time of my evaluation today he was having notable respiratory distress with audible wheezing. patient was started bronchodilator therapy in addition to Solu-Medrol 40 mg IV q.8 hours. Patients respiratory status did improve. Was not requiring any supplemental oxygen. Was transferred to regular medical floor where he was able to tolerate oral intake. Denies any suicidal ideations. Psychiatry evaluation was obtained and patient was cleared for discharge. Did not warrant an inpatient psychiatric admission. Physical Exam Narrative: EXAM NARRATIVE: General :Awake, alert and oriented x3 HEENT: Grossly unremarkable CVS: RRR Chest: Diffuse wheezing, no retractions Abd: Soft, NT,ND Ext : No edema , FROM x 4. No gait abnormality Discharge Data Data Completed and Pending: Completed Studies During Hospitalization Category Date Time Status CT head wo con* 7 0450 Urgent Cat Scan 04/17/21 20:51 Completed Vitals: Last Vital Signs Temp 97.7 F 04/19/21 16:00 Pulse 98 04/19/21 16:00 Resp 16 04/19/21 16:55 BP 106/69 04/19/21 16:00 Pulse Ox 94 04/19/21 16:00 Discharge Plan Discharge Patient Disposition: Home Condition: Stable Prescriptions: New prednisone 20 mg Tablet 40 mg PO DAILY Qty: 10 RF: 0 ProAir HFA 90 mcg/actuation HFA aerosol inhaler 2 inh inhalation Q8H PRN (Reason: shortness of breath or wheezing) Qty: 6.7 RF: 0 Continued alprazolam [Xanax] 0.25 mg tablet 0.25 mg PO BID PRN (Reason: anxiety) 14 Days Qty: 28 RF: 0 celecoxib 200 mg capsule 200 mg PO BID RF: 0 albuterol sulfate 2.5 mg /3 mL (0.083 %) solution for nebulization 2.5 mg continuous nebulization Q2H PRN (Reason: Shortness Of Breath) RF: 0 tamsulosin 0.4 mg capsule 0.4 mg PO BEDTIME RF: 0 albuterol sulfate 90 mcg/actuation HFA aerosol inhaler 2 puff INHALATION QID PRN (Reason: Shortness Of Breath) RF: 0 tramadol 50 mg tablet 50 mg PO BID PRN (Reason: Pain) RF: 0 amitriptyline 25 mg tablet 25 mg PO BEDTIME RF: 0 risperidone 0.5 mg tablet See Rx Instructions .ROUTE .COMPLEX RF: 0 bupropion HCl [Wellbutrin XL] 150 mg tablet extended release 24 hr 150 mg PO DAILY Qty: 30 RF: 0 Discontinued prednisone 20 mg tablet 20 mg PO BID RF: 0 oxycodone-acetaminophen 5-325 mg tablet 1 tab PO TID PRN (Reason: Pain) RF: 0 baclofen 20 mg tablet 20 mg PO DAILY RF: 0 diazepam 10 mg tablet 10 mg PO TID PRN (Reason: muscle spasms) RF: 0 Discharge Orders: Discharge Order (Routine); Ordered 04/19/21 Ordered By: Latonia Pérez Referrals: MiladyrJorge Luis MD [Physician] - 2 weeks (PLEASE CALL FOR APPOINTMENT [phone]) Sharda Montenegro PA [Primary Care Provider] - 04/24/21 10:30 am Discharge Diet: Cardiac Discharge Activity: Increase activity as tolerated Patient Instructions: Albuterol (By breathing), Prednisone (By mouth), Post Traumatic Stress Disorder (GEN), Opioid Safety Activity Restrictions/Additional Instructions: return to hospital if any trouble breathing . Discharge Attestations Time Spent in Discharge Care*: greater than 30 min Specific Discharge Activities: educating patient, educating and/or supporting family/caregiver, discussing with pcp/other providers, discussing with sample case porter/social workers/dc planners, documenting/other paperwork and evaluating patient/reviewing data Status at Discharge: Cognitive status at discharge: cognitively intact, Behavioral status at discharge: can be uncooperative, Functional status at discharge: independent ambulation Overall status at discharge: patient is progressing back to baseline Quality Metrics Clinical Quality Measures During this hospital stay, did patient experience: None Coding Level of Care Code Acute [facility] DC note Diagnoses Drug side effects T88.7XXA Drug overdose T50.901A Encounter type: initial encounter Injury intent: accidental or unintentional Anxiety disorder F41.9
--- NOTE | 2021-04-19 19:11 | PC.NURSE ---
IV removed intact at this time. Patient tolerated well. Reviewed patient's discharge with patient at this time. Patient verbalized understanding of discharge instructions including follow up appointment and to pic medications up at the [facility] pharmacy tomorrow morning. Patient is A&Ox3. Respirations even and non-labored on room air. Patient wheel chaired to private car.
--- NOTE | 2021-04-20 11:59 | PC.RESP ---
PULMONARY REHAB INFORMATION SENT TO PATIENT.
--- NOTE | 2021-04-20 14:52 | PC.NURSE ---
HOme meds: Diazepam and Lexapro in ICU sonias, pt notified. Daughter, Yanet Jett, here to [facility] to brain picker pt's meds. Pt's date verified. Meds with
== END 2021-04-19 19:20 | disposition home or self-care (01) ==
LOC: ER 21:32 → ICU 22:33 → MEDSURG 04-19 01:41
PROVIDERS: Admitting Provider Internal Medicine; Emergency Provider Emergency Medicine; PCP Physician Assistant; Visit Provider Hospitalist
DX: T50.901A Poisoning by unspecified drugs, medicaments and biological substances, accidental (unintentional), initial encounter (principal); F41.9 Anxiety disorder, unspecified; N40.0 Benign prostatic hyperplasia without lower urinary tract symptoms; J44.9 Chronic obstructive pulmonary disease, unspecified; Z87.891 Personal history of nicotine dependence
CPT/HCPCS: 36415; 36600; 51701; 70450; 80053; 80306; 80307; 82803; 84443; 85025; 94640; 96372; 96374; 96375; 99285; G0378; J1650; J2060; J2920

== ENCOUNTER 2021-05-14 15:24 | Observation (INO) | payer MEDICARE, MEDICAID, SELFPAY ==
[2021-05-14 15:49] VITALS: BP 167/87; PULSE 91; RESP 16; TEMP 36.9; O2SAT 99; BMI 24.2
--- NOTE | 2021-05-14 15:59 | ECG_ITS ---
[facility] Test Date: 2021-05-14 Pat Name: Rolando Jett Department: Room: Gender: Male Manager Placement: : 1945 Requested By: Josafat Otero Order Number: [id number] Carlos MD: Tamiko Maria M.D. Measurements Intervals [place] Rate: 83 P: 61 OK: 169 QRS: 63 QRSD: 96 T: 26 QT: 267 QTc: 315 Interpretive Statements SINUS RHYTHM SEPTAL MYOCARDIAL INFARCTION [40+ ms Q WAVE IN V1/V2], PROBABLY OLD Compared to ECG 04/17/2021 13:05:05 Myocardial infarct finding now present Electronically Signed On 05-14-2021 20:18:00 CDT by Tamiko Maria M.D. [id number]
--- NOTE | 2021-05-14 16:00 | W.ED.GENADLT ---
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 (0.4-20.1) %THgb Methemoglobin (0.4-1.5) % Total Hemoglobin (14-18) g/dL Ionized Calcium (1.1-1.4) mmol/L O2 Delivery Device Hydraulic Controls Technician ID Sodium 139 (136-145) mmol/L Potassium 3.4 L (3.5-5.1) mmol/L Chloride 104 (98-107) mmol/L Carbon Dioxide 18 L (22-29) mmol/L Anion Gap 20.4 H (5-19) BUN 20 (8-23) mg/dL Creatinine 0.7 (0.7-1.2) mg/dL GFR Calculation Not Reportable Glucose 125 H (65-115) mg/dL Calculated Osmolal ity 292 (285-295) mOsm/k g Lactate (0.5-2.2) mmol/L Calcium 9.2 (8.5-10.5) mg/dL Total Bilirubin 1.0 (0.15-1.2) mg/dL AST 2598 H (0-40) U/L ALT 3366 H (0-41) U/L Alkaline Phosphata se 56 (40-130) IU/L Ammonia (16-60) umol/L Lactate Dehydrogen ase (135-225) U/L Creatine Kinase (39-308) U/L Troponin T Gen 5 n g/L (0-15) ng/L Total Protein 6.3 L (6.6-8.7) g/dL Albumin 4.2 (3.5-5.2) g/dL Globulin 2.1 (1.3-4.6) g/dL Lipase 18 (13-60) U/L Procalcitonin (0-0.5) ng/mL Urine Color (Yellow) Urine Appearance (CLEAR) Urine pH (5-7) Ur Specific Gravit y (1.005-1.030) Urine Protein (Negative) Urine Glucose (UA) (Normal) Urine Ketones (Negative) Urine Blood (Negative) Urine Nitrate (Negative) Urine Bilirubin (Negative) Urine Urobilinogen (Negative) mg/dL Ur Leukocyte Rand ase (Negative) Urine Opiates Scre en (Negative) ng/mL Acetaminophen (10-30) ug/mL Ur Barbiturates Sc reen (Negative) ng/mL Ur Phencyclidine S crn (Negative) ng/mL Ur Amphetamines Sc reen (Negative) ng/mL U Benzodiazepines Scrn (Negative) ng/mL Urine Cocaine Scre en (Negative) ng/mL U Marijuana (THC) Screen (Negative) ng/mL Ethyl Alcohol (0-10) mg/dL Nasal/Oral COVID-1 9 PCR Hepatitis A IgM Ab (Nonreactive) Hep Bs Antigen (Nonreactive) Hep Bs Antibody (11.5-1000) Hep B Core Total A b (Nonreactive) Hepatitis C Antibo dy (Nonreactive) HIV 1&2 Ab & HIV 1 Ag (Non-Reactiv) HIV 1&2 Antibody (Non-Reactiv) SARS-CoV-2 Ag (Rap id) (Negative) 05/14/21 05/14/21 05/14/21 Range/Units 14:13 14:13 14:13 WBC (4.0-10.0) 10^3/ uL RBC (4.1-5.3) 10^6/u L Hgb (11.7-16.6) g/dL Hct (42.0-52.0) % MCV (80-94) fL MCH (28.0-34.0) pg MCHC (30.0-36.0) g/dL RDW (12.1-15.1) % Plt Count (130-400) 10^3/c mm MPV (7.4-10.4) fL Neut % (Auto) % Lymph % (Auto) % [place] % (Auto) % Eos % (Auto) % Baso % (Auto) % Neut # (Auto) (1.8-7.7) 10^3/u L Lymph # (Auto) (0.8-4.8) 10^3/u L [place] # (Auto) (0.2-0.9) 10^3/u L Eos # (Auto) (0.0-0.8) 10^3/u L Baso # (Auto) (0.0-0.1) 10^3/u L Nucleated RBC % (a uto) % Nucleated RBCs # /100WBC PT (12.1-14.9) SECO NDS INR (0.8-1.2) APTT (23.9-36.7) SECO NDS Specimen Type Sample Site ABG pH (7.35-7.45) ABG pCO2 (35-45) mmHg ABG pO2 (80.0-100.0) mmH g ABG HCO3 (22-26) mmol/L ABG O2 Saturation ABG Base Excess (-2.0-2.0) mmol/ L Kr[place]f Test A-a O2 Gradient (5-10) mmHg Hematocrit (42-52) % Hgb O2 Saturation (95-100) % Carboxyhemoglobin (0.4-20.1) %THgb Methemoglobin (0.4-1.5) % Total Hemoglobin (14-18) g/dL Ionized Calcium (1.1-1.4) mmol/L O2 Delivery Device Hydraulic Controls Technician ID Sodium (136-145) mmol/L Potassium (3.5-5.1) mmol/L Chloride (98-107) mmol/L Carbon Dioxide (22-29) mmol/L Anion Gap (5-19) BUN (8-23) mg/dL Creatinine (0.7-1.2) mg/dL GFR Calculation Glucose (65-115) mg/dL Calculated Osmolal ity (285-295) mOsm/k g Lactate (0.5-2.2) mmol/L Calcium (8.5-10.5) mg/dL Total Bilirubin (0.15-1.2) mg/dL AST (0-40) U/L ALT (0-41) U/L Alkaline Phosphata se (40-130) IU/L Ammonia (16-60) umol/L Lactate Dehydrogen ase (135-225) U/L Creatine Kinase (39-308) U/L Troponin T Gen 5 n g/L (0-15) ng/L Total Protein (6.6-8.7) g/dL Albumin (3.5-5.2) g/dL Globulin (1.3-4.6) g/dL Lipase (13-60) U/L Procalcitonin (0-0.5) ng/mL Urine Color (Yellow) Urine Appearance (CLEAR) Urine pH (5-7) Ur Specific Gravit y (1.005-1.030) Urine Protein (Negative) Urine Glucose (UA) (Normal) Urine Ketones (Negative) Urine Blood (Negative) Urine Nitrate (Negative) Urine Bilirubin (Negative) Urine Urobilinogen (Negative) mg/dL Ur Leukocyte Rand ase (Negative) Urine Opiates Scre en (Negative) ng/mL Acetaminophen < 5.0 L (10-30) ug/mL Ur Barbiturates Sc reen (Negative) ng/mL Ur Phencyclidine S crn (Negative) ng/mL Ur Amphetamines Sc reen (Negative) ng/mL U Benzodiazepines Scrn (Negative) ng/mL Urine Cocaine Scre en (Negative) ng/mL U Marijuana (THC) Screen (Negative) ng/mL Ethyl Alcohol < 10 (0-10) mg/dL Nasal/Oral COVID-1 9 PCR Hepatitis A IgM Ab Non-reactive (Nonreactive) Hep Bs Antigen Non-reactive (Nonreactive) Hep Bs Antibody < 3.5 L (11.5-1000) Hep B Core Total A b Non-reactive (Nonreactive) Hepatitis C Antibo dy Non-reactive (Nonreactive) HIV 1&2 Ab & HIV 1 Ag (Non-Reactiv) HIV 1&2 Antibody (Non-Reactiv) SARS-CoV-2 Ag (Rap id) (Negative) 05/14/21 05/14/21 05/14/21 Range/Units 14:13 16:24 19:40 WBC (4.0-10.0) 10^3/ uL RBC (4.1-5.3) 10^6/u L Hgb (11.7-16.6) g/dL Hct (42.0-52.0) % MCV (80-94) fL MCH (28.0-34.0) pg MCHC (30.0-36.0) g/dL RDW (12.1-15.1) % Plt Count (130-400) 10^3/c mm MPV (7.4-10.4) fL Neut % (Auto) % Lymph % (Auto) % [place] % (Auto) % Eos % (Auto) % Baso % (Auto) % Neut # (Auto) (1.8-7.7) 10^3/u L Lymph # (Auto) (0.8-4.8) 10^3/u L [place] # (Auto) (0.2-0.9) 10^3/u L Eos # (Auto) (0.0-0.8) 10^3/u L Baso # (Auto) (0.0-0.1) 10^3/u L Nucleated RBC % (a uto) % Nucleated RBCs # /100WBC PT (12.1-14.9) SECO NDS INR (0.8-1.2) APTT (23.9-36.7) SECO NDS Specimen Type Arterial Sample Site Brachial, left ABG pH 7.48 H (7.35-7.45) ABG pCO2 28.3 L (35-45) mmHg ABG pO2 89.9 (80.0-100.0) mmH g ABG HCO3 20.8 L (22-26) mmol/L ABG O2 Saturation 97.4 ABG Base Excess -1.6 (-2.0-2.0) mmol/ L [place]f Test Pos A-a O2 Gradient 3.1 L (5-10) mmHg Hematocrit 42.8 (42-52) % Hgb O2 Saturation 95.8 (95-100) % Carboxyhemoglobin 0.5 (0.4-20.1) %THgb Methemoglobin 1.2 (0.4-1.5) % Total Hemoglobin 14.0 (14-18) g/dL Ionized Calcium 1.2 (1.1-1.4) mmol/L O2 Delivery Device Room air Hydraulic Controls Technician ID Cak Sodium 146.0 H (136-145) mmol/L Potassium 2.9 L (3.5-5.1) mmol/L Chloride (98-107) mmol/L Carbon Dioxide (22-29) mmol/L Anion Gap (5-19) BUN (8-23) mg/dL Creatinine (0.7-1.2) mg/dL GFR Calculation Glucose 134.0 H (65-115) mg/dL Calculated Osmolal ity (285-295) mOsm/k g Lactate (0.5-2.2) mmol/L Calcium (8.5-10.5) mg/dL Total Bilirubin (0.15-1.2) mg/dL AST (0-40) U/L ALT (0-41) U/L Alkaline Phosphata se (40-130) IU/L Ammonia 90 H (16-60) umol/L Lactate Dehydrogen ase (135-225) U/L Creatine Kinase 814 H* (39-308) U/L Troponin T Gen 5 n g/L (0-15) ng/L Total Protein (6.6-8.7) g/dL Albumin (3.5-5.2) g/dL Globulin (1.3-4.6) g/dL Lipase (13-60) U/L Procalcitonin (0-0.5) ng/mL Urine Color (Yellow) Urine Appearance (CLEAR) Urine pH (5-7) Ur Specific Gravit y (1.005-1.030) Urine Protein (Negative) Urine Glucose (UA) (Normal) Urine Ketones (Negative) Urine Blood (Negative) Urine Nitrate (Negative) Urine Bilirubin (Negative) Urine Urobilinogen (Negative) mg/dL Ur Leukocyte Rand ase (Negative) Urine Opiates Scre en (Negative) ng/mL Acetaminophen (10-30) ug/mL Ur Barbiturates Sc reen (Negative) ng/mL Ur Phencyclidine S crn (Negative) ng/mL Ur Amphetamines Sc reen (Negative) ng/mL U Benzodiazepines Scrn (Negative) ng/mL Urine Cocaine Scre en (Negative) ng/mL U Marijuana (THC) Screen (Negative) ng/mL Ethyl Alcohol (0-10) mg/dL Nasal/Oral COVID-1 9 PCR Hepatitis A IgM Ab (Nonreactive) Hep Bs Antigen (Nonreactive) Hep Bs Antibody (11.5-1000) Hep B Core Total A b (Nonreactive) Hepatitis C Antibo dy (Nonreactive) HIV 1&2 Ab & HIV 1 Ag (Non-Reactiv) HIV 1&2 Antibody (Non-Reactiv) SARS-CoV-2 Ag (Rap id) (Negative) 05/14/21 05/14/21 05/14/21 Range/Units 19:40 20:54 20:54 WBC (4.0-10.0) 10^3/ uL RBC (4.1-5.3) 10^6/u L Hgb (11.7-16.6) g/dL Hct (42.0-52.0) % MCV (80-94) fL MCH (28.0-34.0) pg MCHC (30.0-36.0) g/dL RDW (12.1-15.1) % Plt Count (130-400) 10^3/c mm MPV (7.4-10.4) fL Neut % (Auto) % Lymph % (Auto) % [place] % (Auto) % Eos % (Auto) % Baso % (Auto) % Neut # (Auto) (1.8-7.7) 10^3/u L Lymph # (Auto) (0.8-4.8) 10^3/u L [place] # (Auto) (0.2-0.9) 10^3/u L Eos # (Auto) (0.0-0.8) 10^3/u L Baso # (Auto) (0.0-0.1) 10^3/u L Nucleated RBC % (a uto) % Nucleated RBCs # /100WBC PT (12.1-14.9) SECO NDS INR (0.8-1.2) APTT (23.9-36.7) SECO NDS Specimen Type Sample Site ABG pH (7.35-7.45) ABG pCO2 (35-45) mmHg ABG pO2 (80.0-100.0) mmH g ABG HCO3 (22-26) mmol/L ABG O2 Saturation ABG Base Excess (-2.0-2.0) mmol/ L Kr[place]f Test A-a O2 Gradient (5-10) mmHg Hematocrit (42-52) % Hgb O2 Saturation (95-100) % Carboxyhemoglobin (0.4-20.1) %THgb Methemoglobin (0.4-1.5) % Total Hemoglobin (14-18) g/dL Ionized Calcium (1.1-1.4) mmol/L O2 Delivery Device Hydraulic Controls Technician ID Sodium (136-145) mmol/L Potassium (3.5-5.1) mmol/L Chloride (98-107) mmol/L Carbon Dioxide (22-29) mmol/L Anion Gap (5-19) BUN (8-23) mg/dL Creatinine (0.7-1.2) mg/dL GFR Calculation Glucose (65-115) mg/dL Calculated Osmolal ity (285-295) mOsm/k g Lactate (0.5-2.2) mmol/L Calcium (8.5-10.5) mg/dL Total Bilirubin (0.15-1.2) mg/dL AST (0-40) U/L ALT (0-41) U/L Alkaline Phosphata se (40-130) IU/L Ammonia (16-60) umol/L Lactate Dehydrogen ase (135-225) U/L Creatine Kinase (39-308) U/L Troponin T Gen 5 n g/L 23 H (0-15) ng/L Total Protein (6.6-8.7) g/dL Albumin (3.5-5.2) g/dL Globulin (1.3-4.6) g/dL Lipase (13-60) U/L Procalcitonin (0-0.5) ng/mL Urine Color Yellow (Yellow) Urine Appearance Clear (CLEAR) Urine pH 7 (5-7) Ur Specific Gravit y 1.005 (1.005-1.030) Urine Protein Trace (Negative) Urine Glucose (UA) Norm (Normal) Urine Ketones 1+ H (Negative) Urine Blood Neg (Negative) Urine Nitrate Negative (Negative) Urine Bilirubin Neg (Negative) Urine Urobilinogen 4 H (Negative) mg/dL Ur Leukocyte Rand ase Negative (Negative) Urine Opiates Scre en Negative (Negative) ng/mL Acetaminophen (10-30) ug/mL Ur Barbiturates Sc reen Negative (Negative) ng/mL Ur Phencyclidine S crn Negative (Negative) ng/mL Ur Amphetamines Sc reen Positive H (Negative) ng/mL U Benzodiazepines Scrn Negative (Negative) ng/mL Urine Cocaine Scre en Negative (Negative) ng/mL U Marijuana (THC) Screen Negative (Negative) ng/mL Ethyl Alcohol (0-10) mg/dL Nasal/Oral COVID-1 9 PCR Hepatitis A IgM Ab (Nonreactive) Hep Bs Antigen (Nonreactive) Hep Bs Antibody (11.5-1000) Hep B Core Total A b (Nonreactive) Hepatitis C Antibo dy (Nonreactive) HIV 1&2 Ab & HIV 1 Ag (Non-Reactiv) HIV 1&2 Antibody (Non-Reactiv) SARS-CoV-2 Ag (Rap id) (Negative) 05/14/21 05/14/21 05/14/21 Range/Units 20:54 23:30 23:30 WBC (4.0-10.0) 10^3/ uL RBC (4.1-5.3) 10^6/u L Hgb (11.7-16.6) g/dL Hct (42.0-52.0) % MCV (80-94) fL MCH (28.0-34.0) pg MCHC (30.0-36.0) g/dL RDW (12.1-15.1) % Plt Count (130-400) 10^3/c mm MPV (7.4-10.4) fL Neut % (Auto) % Lymph % (Auto) % [place] % (Auto) % Eos % (Auto) % Baso % (Auto) % Neut # (Auto) (1.8-7.7) 10^3/u L Lymph # (Auto) (0.8-4.8) 10^3/u L [place] # (Auto) (0.2-0.9) 10^3/u L Eos # (Auto) (0.0-0.8) 10^3/u L Baso # (Auto) (0.0-0.1) 10^3/u L Nucleated RBC % (a uto) % Nucleated RBCs # /100WBC PT (12.1-14.9) SECO NDS INR (0.8-1.2) APTT (23.9-36.7) SECO NDS Specimen Type Sample Site ABG pH (7.35-7.45) ABG pCO2 (35-45) mmHg ABG pO2 (80.0-100.0) mmH g ABG HCO3 (22-26) mmol/L ABG O2 Saturation ABG Base Excess (-2.0-2.0) mmol/ L Krz[place]f Test A-a O2 Gradient (5-10) mmHg Hematocrit (42-52) % Hgb O2 Saturation (95-100) % Carboxyhemoglobin (0.4-20.1) %THgb Methemoglobin (0.4-1.5) % Total Hemoglobin (14-18) g/dL Ionized Calcium (1.1-1.4) mmol/L O2 Delivery Device Hydraulic Controls Technician ID Sodium (136-145) mmol/L Potassium (3.5-5.1) mmol/L Chloride (98-107) mmol/L Carbon Dioxide (22-29) mmol/L Anion Gap (5-19) BUN (8-23) mg/dL Creatinine (0.7-1.2) mg/dL GFR Calculation Glucose (65-115) mg/dL Calculated Osmolal ity (285-295) mOsm/k g Lactate 1.1 (0.5-2.2) mmol/L Calcium (8.5-10.5) mg/dL Total Bilirubin (0.15-1.2) mg/dL AST (0-40) U/L ALT (0-41) U/L Alkaline Phosphata se (40-130) IU/L Ammonia (16-60) umol/L Lactate Dehydrogen ase (135-225) U/L Creatine Kinase (39-308) U/L Troponin T Gen 5 n g/L (0-15) ng/L Total Protein (6.6-8.7) g/dL Albumin (3.5-5.2) g/dL Globulin (1.3-4.6) g/dL Lipase (13-60) U/L Procalcitonin (0-0.5) ng/mL Urine Color (Yellow) Urine Appearance (CLEAR) Urine pH (5-7) Ur Specific Gravit y (1.005-1.030) Urine Protein (Negative) Urine Glucose (UA) (Normal) Urine Ketones (Negative) Urine Blood (Negative) Urine Nitrate (Negative) Urine Bilirubin (Negative) Urine Urobilinogen (Negative) mg/dL Ur Leukocyte Rand ase (Negative) Urine Opiates Scre en (Negative) ng/mL Acetaminophen (10-30) ug/mL Ur Barbiturates Sc reen (Negative) ng/mL Ur Phencyclidine S crn (Negative) ng/mL Ur Amphetamines Sc reen (Negative) ng/mL U Benzodiazepines Scrn (Negative) ng/mL Urine Cocaine Scre en (Negative) ng/mL U Marijuana (THC) Screen (Negative) ng/mL Ethyl Alcohol (0-10) mg/dL Nasal/Oral COVID-1 9 PCR Not detected Hepatitis A IgM Ab (Nonreactive) Hep Bs Antigen (Nonreactive) Hep Bs Antibody (11.5-1000) Hep B Core Total A b (Nonreactive) Hepatitis C Antibo dy (Nonreactive) HIV 1&2 Ab & HIV 1 Ag (Non-Reactiv) HIV 1&2 Antibody (Non-Reactiv) SARS-CoV-2 Ag (Rap id) Negative (Negative) 05/15/21 05/15/21 05/15/21 Range/Units 01:50 01:50 01:50 WBC 10.6 H (4.0-10.0) 10^3/ uL RBC 4.49 (4.1-5.3) 10^6/u L Hgb 13.3 (11.7-16.6) g/dL Hct 40.2 L (42.0-52.0) % MCV 89.5 D (80-94) fL MCH 29.6 (28.0-34.0) pg MCHC 33.1 (30.0-36.0) g/dL RDW 15.2 H (12.1-15.1) % Plt Count 329 (130-400) 10^3/c mm MPV 9.9 (7.4-10.4) fL Neut % (Auto) 79.0 % Lymph % (Auto) 14.2 % [place] % (Auto) 5.0 % Eos % (Auto) 0.5 % Baso % (Auto) 0.6 % Neut # (Auto) 8.37 H (1.8-7.7) 10^3/u L Lymph # (Auto) 1.5 (0.8-4.8) 10^3/u L [place] # (Auto) 0.5 (0.2-0.9) 10^3/u L Eos # (Auto) 0.1 (0.0-0.8) 10^3/u L Baso # (Auto) 0.1 (0.0-0.1) 10^3/u L Nucleated RBC % (a uto) 0 % Nucleated RBCs # 0.0 /100WBC PT (12.1-14.9) SECO NDS INR (0.8-1.2) APTT (23.9-36.7) SECO NDS Specimen Type Sample Site ABG pH (7.35-7.45) ABG pCO2 (35-45) mmHg ABG pO2 (80.0-100.0) mmH g ABG HCO3 (22-26) mmol/L ABG O2 Saturation ABG Base Excess (-2.0-2.0) mmol/ L Krzysztof Test A-a O2 Gradient (5-10) mmHg Hematocrit (42-52) % Hgb O2 Saturation (95-100) % Carboxyhemoglobin (0.4-20.1) %THgb Methemoglobin (0.4-1.5) % Total Hemoglobin (14-18) g/dL Ionized Calcium (1.1-1.4) mmol/L O2 Delivery Device Hydraulic Controls Technician ID Sodium 147 H (136-145) mmol/L Potassium 2.9 L (3.5-5.1) mmol/L Chloride 111 H (98-107) mmol/L Carbon Dioxide 21 L (22-29) mmol/L Anion Gap 17.9 (5-19) BUN 13 (8-23) mg/dL Creatinine 0.5 L (0.7-1.2) mg/dL GFR Calculation Not Reportable Glucose 84 (65-115) mg/dL Calculated Osmolal ity 303 H (285-295) mOsm/k g Lactate (0.5-2.2) mmol/L Calcium 7.4 L (8.5-10.5) mg/dL Total Bilirubin 0.7 (0.15-1.2) mg/dL AST 1349 H (0-40) U/L ALT 2673 H (0-41) U/L Alkaline Phosphata se 42 (40-130) IU/L Ammonia (16-60) umol/L Lactate Dehydrogen ase 876 H (135-225) U/L Creatine Kinase (39-308) U/L Troponin T Gen 5 n g/L (0-15) ng/L Total Protein 5.2 L (6.6-8.7) g/dL Albumin 3.6 (3.5-5.2) g/dL Globulin 1.6 (1.3-4.6) g/dL Lipase (13-60) U/L Procalcitonin 6.98 H (0-0.5) ng/mL Urine Color (Yellow) Urine Appearance (CLEAR) Urine pH (5-7) Ur Specific Gravit y (1.005-1.030) Urine Protein (Negative) Urine Glucose (UA) (Normal) Urine Ketones (Negative) Urine Blood (Negative) Urine Nitrate (Negative) Urine Bilirubin (Negative) Urine Urobilinogen (Negative) mg/dL Ur Leukocyte Rand ase (Negative) Urine Opiates Scre en (Negative) ng/mL Acetaminophen (10-30) ug/mL Ur Barbiturates Sc reen (Negative) ng/mL Ur Phencyclidine S crn (Negative) ng/mL Ur Amphetamines Sc reen (Negative) ng/mL U Benzodiazepines Scrn (Negative) ng/mL Urine Cocaine Scre en (Negative) ng/mL U Marijuana (THC) Screen (Negative) ng/mL Ethyl Alcohol (0-10) mg/dL Nasal/Oral COVID-1 9 PCR Hepatitis A IgM Ab (Nonreactive) Hep Bs Antigen (Nonreactive) Hep Bs Antibody (11.5-1000) Hep B Core Total A b (Nonreactive) Hepatitis C Antibo dy (Nonreactive) HIV 1&2 Ab & HIV 1 Ag Non-reactive (Non-Reactiv) HIV 1&2 Antibody Non-reactive (Non-Reactiv) SARS-CoV-2 Ag (Rap id) (Negative) EKG Data^: EKG 1: Computer generated interpretation: Abdomen/Pelvis CT 05/14/21 16:56 IMPRESSION: 1. Negative for acute abdominopelvic pathology. 2. Suspected right lateral hip area subcutaneous soft tissue contusion. Radiation Dose CTDIVOL = (mGy): DLP = 873.76 (mGy-cm) Discharge Plan Discharge Patient Disposition: Xfer Short-Term Hosp Clinical Impression: Delirium due to general medical condition, Transaminitis Acute hepatic failure Qualifiers: Hepatic coma status: without hepatic coma Qualified Code(s): K72.00 - Acute and subacute hepatic failure without coma Condition: Serious Referrals: Sharda Montenegro PA [Primary Care Provider] - Sign Out Sign Out Data: Patient Sign Out occurred on 05/15/21 at 13:30. Patient's care was discussed, and care was transferred from to Reuben Graves DO. Coding Level of Care Code ED Director Of Food And Nutrition for [facility] Fwd Exam Comprehensive
[2021-05-14 16:12] LABS: Basophils % 0.3 %; Hematocrit 41.8 % (42.0-52.0); Hemoglobin 14.5 g/dL (11.7-16.6); Lymphocytes # 1.3 10^3/uL (0.8-4.8); Lymphocytes % 9.1 %; Mean Corpuscular HGB Conc 34.7 g/dL (30.0-36.0); Mean Corpuscular Hemoglobin 29.5 pg (28.0-34.0); Monocytes # 0.7 10^3/uL (0.2-0.9); Monocytes % 5.3 %; Neutrophils # 11.74 10^3/uL (1.8-7.7); Neutrophils % 84.5 %; Nucleated Red Blood Cells % 0 %; Platelet Count 383 10^3/cmm (130-400); Red Blood Count 4.92 10^6/uL (4.1-5.3); Red Cell Distribution Width 14.5 % (12.1-15.1); White Blood Count 13.9 10^3/uL (4.0-10.0)
[2021-05-14 16:24] LABS: INR 1.62 (0.8-1.2)
[2021-05-14 16:25] LABS: Partial Thromboplastin Time 33.4 SECONDS (23.9-36.7)
[2021-05-14 16:29] LABS: Albumin Level 4.2 g/dL (3.5-5.2); Alkaline Phosphatase 56 IU/L (40-130); Anion Gap 20.4 (5-19); Blood Urea Nitrogen 20 mg/dL (8-23); Calcium 9.2 mg/dL (8.5-10.5); Carbon Dioxide 18 mmol/L (22-29); Chloride 104 mmol/L (98-107); Globulin 2.1 g/dL (1.3-4.6); Glucose 125 mg/dL (65-115); Lipase 18 U/L (13-60); Osmolality Calculated 292 mOsm/kg (285-295); Potassium 3.4 mmol/L (3.5-5.1); Sodium 139 mmol/L (136-145); Total Protein 6.3 g/dL (6.6-8.7)
[2021-05-14 16:35] LABS: ABG PCO2 28.3 mmHg (35-45); ABG PH Result 7.48 (7.35-7.45); Alveolar-Arterial Oxygen Gradi 3.1 mmHg (5-10); Arterial Blood Gas Hematocrit 42.8 % (42-52); Base Excess ABG -1.6 mmol/L (-2.0-2.0); Blood Gas Allen Test Pos; Blood Gas Operator Identificat CAK; Blood Gas Sample Site Brachial, left; Blood Gas Sample Type Arterial; Carboxyhemoglobin 0.5 %THgb (0.4-20.1); HCO3 ABG 20.8 mmol/L (22-26); HGB O2 Sat 95.8 % (95-100); Ionized Calcium Level - ABG 1.2 mmol/L (1.1-1.4); Methemoglobin 1.2 % (0.4-1.5); Oxygen Device ROOM AIR; Oxygen Saturation ABG 97.4; PO2 ABG 89.9 mmHg (80.0-100.0); Potassium Level - ABG 2.9 mmol/L (3.5-5.0)
[2021-05-14 16:40] LABS: Alanine Aminotransferase 3366 U/L (0-41)
[2021-05-14 16:49] LABS: Aspartate Amino Transferase 2598 U/L (0-40)
--- NOTE | 2021-05-14 16:56 | CTR_ITS ---
PROCEDURE INFORMATION: Exam: CT Abdomen And Pelvis With Contrast Exam date and time: 05/14/2021 4:56 PM Age: 76 years old Clinical indication: Abdominal pain; Generalized; Prior surgery; Surgery date: 6+ months; Surgery type: Appy; Patient HX: AMS w non specific abd pain TECHNIQUE: Imaging protocol: Computed tomography of the abdomen and pelvis with contrast. Radiation optimization: All CT scans at this facility use at least one of these dose optimization techniques: automated exposure control; mA and/or kV adjustment per patient size (includes targeted exams where dose is matched to clinical indication); or iterative reconstruction. Contrast material: OMNI 300; Contrast volume: 95 ml; Contrast route: INTRAVENOUS (IV); COMPARISON: CR (PELVIS, ) 04/04/2021 9:07 AM RADIATION DOSE METRICS: Total DLP (mGy-cm): 873.76 FINDINGS: Liver: Multiple small simple liver cysts. Negative for liver enlargement. Gallbladder and bile ducts: Normal. No calcified stones. No ductal dilation. Pancreas: Normal. No ductal dilation. Spleen: Normal. No splenomegaly. Adrenal glands: Normal. No mass. Kidneys and ureters: Normal. No hydronephrosis. Stomach and bowel: Unremarkable. No obstruction. No mucosal thickening. Large fecal volume consistent with constipation. Appendix: No evidence of appendicitis. Intraperitoneal space: Unremarkable. No free air. No significant fluid collection. Vasculature: Unremarkable. No abdominal aortic aneurysm. Lymph nodes: Unremarkable. No enlarged lymph nodes. Urinary bladder: Unremarkable as visualized. Reproductive: Unremarkable as visualized. Bones/joints: The lumbar spine demonstrates marked discogenic and apophyseal joint degenerative changes at multiple levels. Soft tissues: Possible soft tissue contusion changes in the subcutaneous fat of the right lateral hip area. CT/CT abdomen pelvis w con* [id number] IMPRESSION: 1. Negative for acute abdominopelvic pathology. 2. Suspected right lateral hip area subcutaneous soft tissue contusion. Radiation Dose CTDIVOL = (mGy): DLP = 873.76 (mGy-cm)
[2021-05-14] MEDS: iohexol 300 mg/mL 100 mL Btl IV (17:20)
[2021-05-14 17:29] LABS: Alcohol Level < 10 mg/dL (0-10)
[2021-05-14 17:49] LABS: Hepatitis A Antibody IgM Non-Reactive (Nonreactive); Hepatitis B Core AB, Total Non-Reactive (Nonreactive); Hepatitis B Surface Antigen Non-Reactive (Nonreactive); Hepatitis C Virus Antibody Non-Reactive (Nonreactive)
[2021-05-14 17:56] LABS: Hepatitis B Surface AB < 3.5 (11.5-1000)
[2021-05-14 18:30] VITALS: BP 147/98; PULSE 85; RESP 19; O2SAT 99
[2021-05-14] MEDS: sodium chloride 0.9% 500 ML IV (18:54)
[2021-05-14] MEDS: naloxone 0.4 mg/ml SDV IVP (18:55)
[2021-05-14 19:01] LABS: Acetaminophen < 5.0 ug/mL (10-30)
[2021-05-14] MEDS: sodium chloride 0.9% 1,000 ML 999 ML IV (19:50)
[2021-05-14 20:22] LABS: Troponin T (5th) Once 23 ng/L (0-15)
[2021-05-14 20:41] LABS: Ammonia 90 umol/L (16-60)
[2021-05-14 21:27] LABS: Amphetamines Screen Urine Positive (Negative); Barbiturates Screen Urine Negative (Negative); Benzodiazepines Screen Urine Negative (Negative); Cocaine Screen Urine Negative (Negative); Opiate Screen Urine Negative (Negative); PCP Screen Urine Negative (Negative); THC Screen Urine Negative (Negative)
[2021-05-14 21:29] LABS: Add Urine Microscopic? NO; Urine Appearance Clear (CLEAR); Urine Color Yellow (Yellow)
[2021-05-14 21:30] LABS: Bilirubin Urine Neg (Negative); Blood Urine Neg (Negative); Charge for UA Resulting for Rev; Glucose Urine UA Norm (Normal); Ketones Urine 1+ (Negative); Leukocyte Esterase Urine Negative (Negative); Nitrate Urine Negative (Negative); Protein Urine Trace (Negative); Specific Gravity, Urine 1.005 (1.005-1.030); Urobilinogen Urine 4 mg/dL (Negative); pH Urine 7 (5-7)
[2021-05-14 21:47] LABS: SARS Covid-2 Antigen Negative (Negative)
[2021-05-15] VITALS (19 sets, daily range): BP systolic 149–182; BP diastolic 79–98; PULSE 59–93; RESP 14–27; TEMP 36.9; O2SAT 95–99
[2021-05-15 00:10] LABS: Creatine Phosphokinase 814 U/L (39-308)
[2021-05-15 00:11] LABS: Lactate (Lactic Acid level) 1.1 mmol/L (0.5-2.2)
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
[2021-05-15] MEDS: sodium chloride 0.9% 1,000 ML 125 ML IV ×3 (01:56→17:04)
[2021-05-15] MEDS: lactulose oral liq 20 gm/30 mL UDC PO ×2 (04:39→16:35)
[2021-05-15] MEDS: famotidine 20 mg/2 mL INJ IVP ×2 (04:40→16:36)
[2021-05-15 06:07] LABS: Basophils # 0.1 10^3/uL (0.0-0.1); Basophils % 0.6 %; Eosinophils # 0.1 10^3/uL (0.0-0.8); Eosinophils % 0.5 %; Hematocrit 40.2 % (42.0-52.0); Hemoglobin 13.3 g/dL (11.7-16.6); Lymphocytes # 1.5 10^3/uL (0.8-4.8); Lymphocytes % 14.2 %; Mean Corpuscular HGB Conc 33.1 g/dL (30.0-36.0); Mean Corpuscular Hemoglobin 29.6 pg (28.0-34.0); Mean Corpuscular Volume 89.5 fL (80-94); Mean Platelet Volume 9.9 fL (7.4-10.4); Monocytes # 0.5 10^3/uL (0.2-0.9); Neutrophils # 8.37 10^3/uL (1.8-7.7); Nucleated Red Blood Cells % 0 %; Platelet Count 329 10^3/cmm (130-400); Red Blood Count 4.49 10^6/uL (4.1-5.3); Red Cell Distribution Width 15.2 % (12.1-15.1); White Blood Count 10.6 10^3/uL (4.0-10.0)
[2021-05-15 06:35] LABS: Albumin Level 3.6 g/dL (3.5-5.2); Alkaline Phosphatase 42 IU/L (40-130); Anion Gap 17.9 (5-19); Blood Urea Nitrogen 13 mg/dL (8-23); Calcium 7.4 mg/dL (8.5-10.5); Carbon Dioxide 21 mmol/L (22-29); Chloride 111 mmol/L (98-107); Globulin 1.6 g/dL (1.3-4.6); Glucose 84 mg/dL (65-115); Lactate Dehydrogenase 876 U/L (135-225); Osmolality Calculated 303 mOsm/kg (285-295); Sodium 147 mmol/L (136-145); Total Bilirubin 0.7 mg/dL (0.15-1.2); Total Protein 5.2 g/dL (6.6-8.7)
[2021-05-15 06:42] LABS: Procalcitonin 6.98 ng/mL (0-0.5)
[2021-05-15 06:47] LABS: Alanine Aminotransferase 2673 U/L (0-41)
[2021-05-15 06:50] LABS: HIV 1 & 2 Antigen Non-Reactive (Non-Reactiv)
[2021-05-15 06:51] LABS: Aspartate Amino Transferase 1349 U/L (0-40); HIV 1 & 2 Antibody Non-Reactive (Non-Reactiv)
[2021-05-15 06:52] LABS: Potassium 2.9 mmol/L (3.5-5.1)
[2021-05-15] MEDS: acetylcysteine 10,200 MG in dextrose 5% 250 ML 301 MG IV (07:23)
[2021-05-15] MEDS: lidocaine 1% 5 ML in potassium chloride premix 100 ML 25 ML IV ×2 (08:12→13:48)
--- NOTE | 2021-05-15 11:22 | PC.NURSE ---
pt continuing to be restless. PSA at bedside to assure pt safety
[2021-05-15 14:03] LABS: Coronavirus Test Green County Not Detected
[2021-05-15 21:09] LABS: Basophils # 0.1 10^3/uL (0.0-0.1); Basophils % 0.6 %; Eosinophils % 0.5 %; Hematocrit 39.2 % (42.0-52.0); Hemoglobin 13.4 g/dL (11.7-16.6); Lymphocytes # 1.4 10^3/uL (0.8-4.8); Lymphocytes % 16.5 %; Mean Corpuscular HGB Conc 34.2 g/dL (30.0-36.0); Mean Corpuscular Hemoglobin 29.9 pg (28.0-34.0); Mean Corpuscular Volume 87.5 fL (80-94); Mean Platelet Volume 9.7 fL (7.4-10.4); Monocytes # 0.7 10^3/uL (0.2-0.9); Monocytes % 7.9 %; Neutrophils # 6.22 10^3/uL (1.8-7.7); Neutrophils % 74.1 %; Nucleated Red Blood Cells % 0 %; Platelet Count 282 10^3/cmm (130-400); Red Blood Count 4.48 10^6/uL (4.1-5.3); Red Cell Distribution Width 14.8 % (12.1-15.1); White Blood Count 8.4 10^3/uL (4.0-10.0)
--- NOTE | 2021-05-15 21:10 | PC.NURSE ---
pt states his IV sit ein L hand is hurting . site infiltrated. new iv site obtained in R forearm
[2021-05-15 21:38] LABS: Albumin Level 3.7 g/dL (3.5-5.2); Alkaline Phosphatase 44 IU/L (40-130); Blood Urea Nitrogen 3 mg/dL (8-23); Calcium 7.8 mg/dL (8.5-10.5); Carbon Dioxide 21 mmol/L (22-29); Chloride 104 mmol/L (98-107); Globulin 1.8 g/dL (1.3-4.6); Glucose 108 mg/dL (65-115); Osmolality Calculated 285 mOsm/kg (285-295); Sodium 139 mmol/L (136-145); Total Bilirubin 0.9 mg/dL (0.15-1.2); Total Protein 5.5 g/dL (6.6-8.7)
[2021-05-15 21:40] LABS: Anion Gap 17.5 (5-19); Aspartate Amino Transferase 420 U/L (0-40); Potassium 3.5 mmol/L (3.5-5.1)
[2021-05-15 21:41] LABS: Creatine Phosphokinase 473 U/L (39-308)
[2021-05-15 21:49] LABS: Alanine Aminotransferase 1913 U/L (0-41)
[2021-05-15 22:27] LABS: INR 1.77 (0.8-1.2)
[2021-05-16] VITALS (22 sets, daily range): BP systolic 115–168; BP diastolic 70–105; PULSE 63–110; RESP 16–28; TEMP 36.6–36.8; O2SAT 93–100
--- NOTE | 2021-05-16 04:16 | PC.NURSE ---
1400cc urine drained from indwelling grove catheter. pt tolerated procedure well
--- NOTE | 2021-05-16 06:10 | W.ED.AMS ---
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 Urine Glucose (UA) (Normal) Urine Ketones (Negative) Urine Blood (Negative) Urine Nitrate (Negative) Urine Bilirubin (Negative) Urine Urobilinogen (Negative) mg/dL Ur Leukocyte Rand ase (Negative) Urine Opiates Scre en (Negative) ng/mL Acetaminophen (10-30) ug/mL Ur Barbiturates Sc reen (Negative) ng/mL Ur Phencyclidine S crn (Negative) ng/mL Ur Amphetamines Sc reen (Negative) ng/mL U Benzodiazepines Scrn (Negative) ng/mL Urine Cocaine Scre en (Negative) ng/mL U Marijuana (THC) Screen (Negative) ng/mL Ethyl Alcohol (0-10) mg/dL Lyme Ab (Western B lot) index Nasal/Oral COVID-1 9 PCR EBV IgG Ab U/mL EBV IgM Ab U/mL EBV Nuclear Antige n U/mL EBV Interpretation Hepatitis A IgM Ab (Nonreactive) Hep Bs Antigen (Nonreactive) Hep Bs Antibody (11.5-1000) Hep B Core Total A b (Nonreactive) Hepatitis Be Antig en (NON-REACTIVE) Hepatitis C Antibo dy (Nonreactive) HIV 1&2 Ab & HIV 1 Ag (Non-Reactiv) HIV 1&2 Antibody (Non-Reactiv) SARS-CoV-2 Ag (Rap id) (Negative) Discharge Plan Discharge Patient Disposition: Admitted As Inpatient Admit Provider: Tico Clayton Clinical Impression: Delirium due to general medical condition, Transaminitis, Acute hepatic failure Condition: Stable Sign Out Sign Out Data: Patient Sign Out occurred on 05/15/21 at 13:30. Patient's care was discussed, and care was transferred from to Reuben Graves DO. 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
[2021-05-16] MEDS: famotidine 20 mg/2 mL INJ IVP ×2 (07:14→17:04)
[2021-05-16] MEDS: lactulose oral liq 20 gm/30 mL UDC PO ×4 (07:23→22:35)
[2021-05-16] MEDS: sodium chloride 0.9% 1,000 ML 125 ML IV (07:24)
--- NOTE | 2021-05-16 09:21 | PC.NURSE ---
[facility] [phone].
[2021-05-16 11:58] LABS: EBV IGM TEST <36.00 U/mL; Lyme AB Screen <0.90 index
[2021-05-16 13:02] LABS: Hepatitis B Envelope Antigen NON-REACTIVE (NON-REACTIVE)
--- NOTE | 2021-05-16 16:27 | P.PN_ITS ---
Subjective Subjective: Interval history: Patient was seen and examined in the ER, patient endorsing feeling hungry wants to eat, afebrile,. Transaminases improving, Patient was endorsing feeling pain in his legs especially right leg with cramps Called poison control who recommended conservative approach considering improvement in his liver enzymes and patient clinically doing better status post NAC gtt. discontinue drip Transfer to medical floor no need of transfer for higher level of care at this point Vitals/I&O/Wt Last Vital Signs Temp 98.5 F 05/15/21 04:30 Pulse 89 05/16/21 15:58 Resp 18 05/16/21 15:58 BP 168/74 05/16/21 15:58 Pulse Ox 96 05/16/21 15:58 05/16/21 05/16/21 05/16/21 06:59 14:59 22:59 Intake Total 1000 / 3710.5 0 / 0 Output Total 900 / 900 Balance 1000 / 3710.5 -900 / -900 Physical Exam Narrative: EXAM NARRATIVE: Patient was laying in his bed complaining of bilateral lower extremity pain Looks dehydrated Patient is endorsing feeling hungry S1, S2 sinus rhythm No murmur appreciated Abdomen soft nontender bowel sound present Lower extremity with skin graft no active signs of ischemia gangrene ulcer or cellulitis Homans' sign is negative Appropriate mood and affect No suicidal thoughts or ideation EOMI, PERRLA No neurological deficit No joint swelling or signs of gout Data : 05/15/21 20:55 05/15/21 20:55 Micro: Microbiology 05/15/21 11:56 Blood Culture - Preliminary Blood NEGATIVE TO DATE 05/15/21 01:50 Blood Culture - Preliminary Blood NEGATIVE TO DATE A&P Assessment and plan (1) Hepatic encephalopathy: Status: Acute (2) Delirium due to general medical condition: Status: Acute (3) Transaminitis: Status: Acute (4) Acute hepatic failure: Status: Acute Qualifiers: Hepatic coma status: without hepatic coma Qualified Code(s): K72.00 - Acute and subacute hepatic failure without coma Additional A&P Information Polysubstance abuse Acute liver failure U tox positive for methamphetamine Acetaminophen level and salicylate level has not trended up Status post NAC GTT Liver enzymes trending down Bilirubin improved, patient is feeling hungry and wants to eat Denies suicidal thoughts Discontinue NAC GTT, conservative approach, trend liver enzymes, Request physical therapy evaluation I believe his bilateral lower extremity pain is neurogenic in nature and would continue SNRIs, will add Flexeril and discontinue baclofen Patient is stating that he lives alone and only took 2 doses of aspirin and ibuprofen Denies alcohol intake Autoimmune and tick panel unremarkable, Hepatitis panel negative At this point his acute liver failure seems secondary to polysubstance abuse Poison control agreed with conservative approach Regular diet Full code DVT prophylaxis Lovenox Attestations Medical Necessity Statement*: Anticipating discharge within 48 hours Time Spent in Patient Care: 30mins Coding Level of Care Code Acute Music Sound Light Technician for Jasong Jesed Diagnoses Hepatic encephalopathy K72.90 Delirium due to general medical condition F05 Transaminitis R74.01 Acute hepatic failure K72.00 Hepatic coma status: without hepatic coma
--- NOTE | 2021-05-16 16:44 | PC.NURSE ---
from er pt is alert, oriented x4. Pt stated he has severe pain on his legs. IVs on both arms are intact. Williamson catheter patent and intact. pt oriented to staff and how to use the call light.
[2021-05-16] MEDS: morphine 4 mg/mL SDV 1 mL 2 MG IVP ×2 (17:04→21:03)
[2021-05-16] MEDS: sodium chloride 0.9% 1,000 ML 50 ML IV (17:05)
[2021-05-16] MEDS: pneumococcal (23 valent) SDV 0.5 mL IM (17:43)
[2021-05-16] MEDS: cyclobenzaprine 10 mg Tablet 5 MG PO (17:44)
[2021-05-16] MEDS: enoxaparin 40 mg/0.4 mL Syringe SUBCUT (17:44)
--- NOTE | 2021-05-16 18:00 | PC.NURSE ---
pt wants his covid vaccine relay the message to night nurse for daytime.
[2021-05-16] MEDS: tamsulosin 0.4 mg Capsule PO (20:33)
[2021-05-16] MEDS: gabapentin 300 mg Capsule PO (20:33)
[2021-05-17] VITALS (9 sets, daily range): BP systolic 105–134; BP diastolic 59–85; PULSE 64–81; RESP 13–21; TEMP 36.4–36.8; O2SAT 93–100
[2021-05-17] MEDS: cyclobenzaprine 10 mg Tablet 5 MG PO ×2 (00:28→21:39)
[2021-05-17 03:42] LABS: Basophils # 0.1 10^3/uL (0.0-0.1); Basophils % 0.7 %; Eosinophils # 0.2 10^3/uL (0.0-0.8); Eosinophils % 2.6 %; Hematocrit 39.6 % (42.0-52.0); Hemoglobin 12.1 g/dL (11.7-16.6); Lymphocytes # 2.1 10^3/uL (0.8-4.8); Lymphocytes % 30.9 %; Mean Corpuscular HGB Conc 30.6 g/dL (30.0-36.0); Mean Corpuscular Hemoglobin 29.5 pg (28.0-34.0); Mean Corpuscular Volume 96.6 fL (80-94); Mean Platelet Volume 9.6 fL (7.4-10.4); Monocytes # 0.7 10^3/uL (0.2-0.9); Neutrophils # 3.81 10^3/uL (1.8-7.7); Neutrophils % 55.5 %; Nucleated Red Blood Cells % 0 %; Platelet Count 255 10^3/cmm (130-400); White Blood Count 6.9 10^3/uL (4.0-10.0)
[2021-05-17 03:56] LABS: Albumin Level 3.2 g/dL (3.5-5.2); Alkaline Phosphatase 47 IU/L (40-130); Anion Gap 16.1 (5-19); Aspartate Amino Transferase 78 U/L (0-40); Blood Urea Nitrogen 7 mg/dL (8-23); Calcium 8.2 mg/dL (8.5-10.5); Carbon Dioxide 20 mmol/L (22-29); Chloride 106 mmol/L (98-107); Globulin 1.4 g/dL (1.3-4.6); Glucose 98 mg/dL (65-115); Magnesium 1.7 mg/dL (1.7-2.3); Osmolality Calculated 286 mOsm/kg (285-295); Potassium 3.1 mmol/L (3.5-5.1); Sodium 139 mmol/L (136-145); Total Bilirubin 0.7 mg/dL (0.15-1.2); Total Protein 4.6 g/dL (6.6-8.7)
[2021-05-17 04:07] LABS: Alanine Aminotransferase 965 U/L (0-41)
[2021-05-17] MEDS: lactulose oral liq 20 gm/30 mL UDC PO ×4 (04:31→21:51)
[2021-05-17] MEDS: famotidine 20 mg/2 mL INJ IVP ×2 (04:31→17:59)
[2021-05-17] MEDS: morphine 4 mg/mL SDV 1 mL 2 MG IVP ×2 (04:34→21:40)
[2021-05-17] MEDS: gabapentin 300 mg Capsule PO ×3 (08:39→21:39)
[2021-05-17] MEDS: mirtazapine 15 mg Tablet PO (08:39)
--- NOTE | 2021-05-17 09:56 | PC.CHAP ---
Pastoral Care Encounter/Spiritual Assessment Type of Contact [] Declined circuit design engineer visit [] Patient/Family/Request visit [] Outpatient visit [] Follow-up visit [] Physician referral [] Code/Alert [x] Routine visit [] Staff referral [] Actively dying [] Patient sleeping [] Family support [] [] Out of room [] Palliative care [] [] Receiving care in room [] Pre-surgical visit [] Trauma [] Long length of stay [] ICU visit [] Other: Relational/Emotional Strength [] Patient feels connected with others/family/visitors/staff [] Distress [] Loneliness/isolation [] Abandonment Spirituality of Patient [] Person of [place] [] Attends Ep[employer] of their [place] [] Believes in Prayer [] Reads Bible or Nondenominational materials [] There are Spiritual issues to be addressed Graduate Teaching Associate Interventions [x] Prayer [x] Active listening [x] Non-anxious presence [x] Spiritual/emotional support [] Crisis/trauma care [] Spiritual counseling [] Bereavement support [] Provided bereavement packet [] Provided Bible/devotional materials [] Provided toy/stuffed animal, coloring book to patient or family member [] Provided Communion [] Anointing/[place] [] Salvation [x] Completed spiritual assessment [] Other: Impact on Illness or Injury [] Angry [] Fearful [] Anxious [] Often cries [] Exhaustion [] Unable to work [] Unable to attend church [] Unable to walk/stand [] Unable to read [] Unable to drive [] Unable to eat/drink [] Unable to sleep [] Unable to be with family [] Patient intubated [] Other: Summary patient enjoying breakfast- feeling much better.. a non believer, but circuit design engineer allowed to pray Time spent with patient 10 min
[2021-05-17 13:07] LABS: COMPLEMENT COMPONENT C3C 78 mg/dL (82-185); COMPLEMENT COMPONENT C4C 23 mg/dL (15-53)
--- NOTE | 2021-05-17 13:15 | PM.PN ---
Subjective Subjective: Interval history: Patient is doing well and endorsing feeling better today, he finished his breakfast, did work with physical therapy who recommended a walker for him, called his daughter Yanet phone #[phone] he is on her way from [place] to pick him up tomorrow Vitals/I&O/Wt Last Vital Signs Temp 98 F 05/17/21 11:08 Pulse 71 05/17/21 11:08 Resp 20 H 05/17/21 11:08 BP 134/72 05/17/21 11:08 Pulse Ox 100 05/17/21 11:08 05/16/21 05/17/21 05/17/21 22:59 06:59 14:59 Intake Total 1510 / 1510 390 / 1900 Output Total 2100 / 3000 450 / 450 Balance 1510 / 610 -1710 / -1100 -450 / -450 Physical Exam Narrative: EXAM NARRATIVE: Pleasant cooperative male Laying comfortable in his bed, breakfast table at the bedside EOMI, PERRLA No active signs of jaundice No neurological deficits Awake alert oriented x3 GCS 15 S1, S2 sinus rhythm Abdomen soft Lower extremity no edema gangrene ulcer Multiple skin grafts noted all over extremities No joint swelling Data : 05/17/21 03:20 05/17/21 03:20 Micro: Microbiology 05/15/21 11:56 Blood Culture - Preliminary Blood NEGATIVE TO DATE A&P Assessment and plan (1) Hepatic encephalopathy: Status: Acute (2) Delirium due to general medical condition: Status: Acute (3) Transaminitis: Status: Acute (4) Acute hepatic failure: Status: Acute Qualifiers: Hepatic coma status: without hepatic coma Qualified Code(s): K72.00 - Acute and subacute hepatic failure without coma (5) Drug overdose: Status: Acute Qualifiers: Encounter type: initial encounter Injury intent: accidental or unintentional Qualified Code(s): T50.901A - Poisoning by unspecified drugs, medicaments and biological substances, accidental (unintentional), initial encounter (6) Anxiety disorder: Status: Acute Additional A&P Information Hepatic encephalopathy: Improved Acute liver failure: Improving No active jaundice, patient is stating that he only took 2 tablets of aspirin and ibuprofen PT evaluation done today who recommended a walker for ambulation at home Talked with his daughter who is coming to pick him up tomorrow she is on her way from [place] Trend liver enzymes, request CMP tomorrow anticipating discharge in next 24 hours Delirium: Improved For his lower extremity pain I have added Flexeril, he is not a candidate to be on any medication which has sedative side effect, I have chosen Flexeril for inpatient usage only Regular diet DVT prophylaxis Lovenox Full code Attestations Medical Necessity Statement*: Anticipating discharge tomorrow, his liver enzymes are trending down, has not completely resolved Time Spent in Patient Care: 30mins Coding Level of Care Code Acute Reproduction Technician for Zohaib Anne Diagnoses Hepatic encephalopathy K72.90 Delirium due to general medical condition F05 Transaminitis R74.01 Acute hepatic failure K72.00 Hepatic coma status: without hepatic coma Drug overdose T50.901A Encounter type: initial encounter Injury intent: accidental or unintentional Anxiety disorder F41.9
[2021-05-17] MEDS: artificial tears Op Soln 15 mL Btl 1 DROP EYE-BOTH ×2 (13:25→18:00)
[2021-05-17 13:42] LABS: COMPLEMENT, TOTAL (CH50) 58 U/mL (31-60)
[2021-05-17] MEDS: enoxaparin 40 mg/0.4 mL Syringe SUBCUT (18:00)
[2021-05-17] MEDS: tamsulosin 0.4 mg Capsule PO (21:39)
[2021-05-18 02:23] VITALS: RESP 18; O2SAT 95
[2021-05-18] MEDS: morphine 4 mg/mL SDV 1 mL 2 MG IVP (02:23)
[2021-05-18 04:00] VITALS: BP 127/82; PULSE 71; RESP 22; TEMP 36.6; O2SAT 95
[2021-05-18 04:28] LABS: Alanine Aminotransferase 598 U/L (0-41); Alkaline Phosphatase 57 IU/L (40-130); Anion Gap 12.2 (5-19); Aspartate Amino Transferase 39 U/L (0-40); Blood Urea Nitrogen 12 mg/dL (8-23); Calcium 7.8 mg/dL (8.5-10.5); Carbon Dioxide 23 mmol/L (22-29); Chloride 108 mmol/L (98-107); Glucose 102 mg/dL (65-115); Osmolality Calculated 290 mOsm/kg (285-295); Potassium 3.2 mmol/L (3.5-5.1); Sodium 140 mmol/L (136-145); Total Bilirubin 0.5 mg/dL (0.15-1.2)
[2021-05-18] MEDS: famotidine 20 mg/2 mL INJ IVP (05:50)
[2021-05-18] MEDS: lactulose oral liq 20 gm/30 mL UDC PO ×2 (05:51→09:53)
[2021-05-18] MEDS: cyclobenzaprine 10 mg Tablet 5 MG PO (05:57)
[2021-05-18 07:43] VITALS: BP 141/90; PULSE 77; RESP 18; TEMP 36.3; O2SAT 96
[2021-05-18] MEDS: gabapentin 300 mg Capsule PO (08:29)
[2021-05-18] MEDS: mirtazapine 15 mg Tablet PO (08:29)
[2021-05-18] MEDS: potassium chloride ER 20 mEq Tablet 40 MEQ PO (09:53)
--- NOTE | 2021-05-18 11:28 | PM.DCS ---
Discharge Providers Date of Admission: 05/16/21 16:41 Date of Discharge: May 18, 2021 Attending Provider at Admission: Tico Clayton MD Attending Provider at Discharge: Tico Clayton MD Primary Care Provider: Sharda Montenegro Diagnoses at Discharge Discharge Diagnosis (1) Hepatic encephalopathy: Status: Acute (2) Delirium due to general medical condition: Status: Acute (3) Transaminitis: Status: Acute (4) Acute hepatic failure: Status: Acute Qualifiers: Hepatic coma status: without hepatic coma Qualified Code(s): K72.00 - Acute and subacute hepatic failure without coma (5) Drug overdose: Status: Acute Qualifiers: Encounter type: initial encounter Injury intent: accidental or unintentional Qualified Code(s): T50.901A - Poisoning by unspecified drugs, medicaments and biological substances, accidental (unintentional), initial encounter (6) Anxiety disorder: Status: Acute Reason for Visit Reason for Visit: AMS Hospital Course Hospital Course HPI; Rolando Jett is a 76 year old male with a past medical history significant forIron deficiency anemia, cluster headaches, benign prostatic hyperplasia, iron deficiency anemia, chronic obstructive pulmonary disease, anxiety, depression PTSD, h/o valium abuse, chronic opioid use who presented to the hospital today with AMS. History is obtained by reviewing prior notes and talking to ER physician. Patient is obtunded right now and unable to tell me any history. Today patient was found by his neighbor laying on the ground in the garden, he had urinated all over himself, initially appeared to be intoxicated and that is why he was brought to the emergency room. Diagnostics in the ER were notable for elevated liver enzymes with AST 2598, ALT 3366, normal alkaline phosphatase and T bili, ammonia at 90, INR at 1.6, overall labs compatible with acute liver failure. Hepatitis screen negative, U tox positive for amphetamines, negative for benzodiazepines negative for opiates, alcohol level less than 10, acetaminophen level less than 5. Not hypotensive since arrival. Covid rapid antigen negative. CT abdomen with multiple small liver cyts, otherwise unremarkabl Hospital course Patient finished N-acetylcysteine gtt. protocol for 21 hours in the ER, his liver enzymes improved, he was awake and alert wanted to eat at that time hospital service was requested 1 more time to evaluate whether transfer to [place] would still hold merit. Considering improvement in his LFTs and clinical status decision was made to admit him to medical floor, on subsequent days his liver enzymes improved with conservative approach, patient stated that he only took 2 tablets each of ibuprofen and aspirin he denied using Valium, Tylenol, he does not drink alcohol. PT evaluation was done, home with a walker was recommended. Daughter is coming today from [place] to pick him up. I have discussed in detail that I will discontinue multiple antipsychotics including Lexapro, Seroquel, trazodone, baclofen to avoid overdosing on medications that can cause sedation as side effect. He can continue risperidone, gabapentin and Wellbutrin. For his allergy symptoms given only 2-day supply of Benadryl. Discharged home with a walker Hepatitis panel negative EBV IgG antibodies detected Lyme disease Western blot antibodies undetectable Pending lab work-up: CMV, leptospirosis, Rickettsia, herpes Physical Exam Narrative: EXAM NARRATIVE: Pleasant cooperative male Laying comfortable in his bed, breakfast table at the bedside EOMI, PERRLA No active signs of jaundice No neurological deficits Awake alert oriented x3 GCS 15 S1, S2 sinus rhythm Abdomen soft Lower extremity no edema gangrene ulcer Multiple skin grafts noted all over extremities No joint swelling Discharge Data Data Completed and Pending: Completed Studies During Hospitalization Category Date Time Status CT abdomen pelvis w con* [id number] Stat Cat Scan 05/14/21 16:56 Completed Pending at discharge Category Date Time Status SHAHID Profile Rheum atology Stat Lab 05/15/21 01:50 Results Blood Culture Sta t Lab 05/15/21 11:56 Results CYTOMEGALOVIRUS D NA, QN, REAL Routi ne Lab 05/15/21 01:50 Received Herpes Simplex Vi scarlet DNA Routine Lab 05/15/21 01:50 Received Leptospira DNA,Qu alitative PCR Rout ine Lab 05/15/21 01:50 Received Tick Panel Stat Lab 05/15/21 01:50 Results Labs from last 24 hours 05/18/21 05/15/21 03:52 01:50 Sodium 140 Potassium 3.2 L Chloride 108 H Carbon Dioxide 23 Anion Gap 12.2 BUN 12 Creatinine 0.5 L GFR Calculation Not Reportable Glucose 102 Calculated Osmolal ity 290 Calcium 7.8 L Total Bilirubin 0.5 AST 39 ALT 598 H Alkaline Phosphata se 57 Total Protein 5.0 L Albumin 3.0 L Globulin 2.0 Complement C3c 78 L Complement C4c 23 CH50 [address] 58 Vitals: Last Vital Signs Temp 97.4 F L 05/18/21 07:43 Pulse 77 05/18/21 07:43 Resp 18 05/18/21 07:43 BP 141/90 05/18/21 07:43 Pulse Ox 96 05/18/21 07:43 Discharge Plan Discharge Patient Disposition: Home Condition: Stable Prescriptions: New Isopto Tears 0.5 % Drops 1 drp eye-both Q4H PRN (Reason: Dry Eye(S)) 10 Days Qty: 1 RF: 1 Benadryl Allergy 25 mg tablet 25 mg PO TID PRN (Reason: allergy symptoms) 2 Days Qty: 6 RF: 0 Continued celecoxib 200 mg capsule 200 mg PO BID RF: 0 albuterol sulfate 2.5 mg /3 mL (0.083 %) solution for nebulization 2.5 mg continuous nebulization Q2H PRN (Reason: Shortness Of Breath) RF: 0 tamsulosin 0.4 mg capsule 0.4 mg PO BEDTIME RF: 0 albuterol sulfate 90 mcg/actuation HFA aerosol inhaler 2 puff INHALATION QID PRN (Reason: Shortness Of Breath) RF: 0 risperidone 0.5 mg tablet See Rx Instructions .ROUTE .COMPLEX RF: 0 bupropion HCl [Wellbutrin XL] 150 mg tablet extended release 24 hr 150 mg PO DAILY Qty: 30 RF: 0 gabapentin 300 mg capsule 300 mg PO TID RF: 0 Spiriva with HandiHaler 18 mcg Capsule, W/Inhalation Device 1 cap INHALATION DAILY RF: 0 Discontinued alprazolam [Xanax] 0.25 mg tablet 0.25 mg PO BID PRN (Reason: anxiety) 14 Days Qty: 28 RF: 0 prednisone 20 mg Tablet 40 mg PO DAILY Qty: 10 RF: 0 tramadol 50 mg tablet 50 mg PO BID PRN (Reason: Pain) RF: 0 amitriptyline 25 mg tablet 25 mg PO BEDTIME RF: 0 trazodone 50 mg Tablet 50 mg PO BEDTIME RF: 0 baclofen 20 mg tablet 20 mg PO TID PRN (Reason: pain) RF: 0 mirtazapine 15 mg Tablet 15 mg PO DAILY RF: 0 escitalopram oxalate [Lexapro] 10 mg Tablet 10 mg PO DAILY RF: 0 quetiapine [Seroquel] 50 mg Tablet 50 mg PO BID RF: 0 Discharge Orders: Discharge Order (Routine); Ordered 05/18/21 Ordered By: Tico Clayton Referrals: Sharda Montenegro PA [Primary Care Provider] - Discharge Diet: Cardiac Discharge Activity: Increase activity as tolerated Patient Instructions: Opioid Safety Activity Restrictions/Additional Instructions: I have discontinued your medications that would cause sedation as side effect, you can take risperidone for your restless leg syndrome along gabapentin and Wellbutrin I have discontinue Lexapro, baclofen, trazodone and Seroquel Discharge Attestations Time Spent in Discharge Care*: less than 30 min Status at Discharge: Cognitive status at discharge: cognitively intact, Behavioral status at discharge: can be uncooperative, Quality Metrics Clinical Quality Measures During this hospital stay, did patient experience: None Coding Level of Care Code Acute [facility] [place] note Diagnoses Hepatic encephalopathy K72.90 Delirium due to general medical condition F05 Transaminitis R74.01 Acute hepatic failure K72.00 Hepatic coma status: without hepatic coma Drug overdose T50.901A Encounter type: initial encounter Injury intent: accidental or unintentional Anxiety disorder F41.9
[2021-05-18 12:00] VITALS: BP 141/90; PULSE 77; RESP 18; TEMP 36.3; O2SAT 96
[2021-05-18 12:01] VITALS: BP 141/90; PULSE 77; RESP 18; TEMP 36.3; O2SAT 96
[2021-05-18 12:42] LABS: CENTROMERE B ANTIBODY <1.0 NEG AI (<1.0 NEG); JO-1 ANTIBODY <1.0 NEG AI (<1.0 NEG); RNP ANTIBODY <1.0 NEG AI (<1.0 NEG); SCL-70 ANTIBODY <1.0 NEG AI (<1.0 NEG); SJOGREN'S ANTIBODY (SS-A) <1.0 NEG AI (<1.0 NEG); SM ANTIBODY <1.0 NEG AI (<1.0 NEG); SS-B <1.0 NEG AI (<1.0 NEG)
--- NOTE | 2021-05-18 13:45 | PC.NURSE ---
Pt discharged home. IV removed no redness or swelling noted. Pts grove removed. Pt tolerated well. Pts discharge instructions given along with prescriptions and follow up appointments. Pt had no c/o pain or discomfort at the time of discharge.
[2021-05-18 16:42] LABS: THYROID PEROXIDASE ANTIBODIES <1 IU/mL (<9)
[2021-05-18 17:48] LABS: ANA SCREEN, IFA NEGATIVE (NEGATIVE)
[2021-05-19 05:33] LABS: CMV DNA By PCR <200 IU/mL; CMV DNA, QN PCR <2.30 Log IU/mL; SOURCE SERUM
--- NOTE | 2021-05-19 15:21 | PC.RESP ---
PULMONARY REHAB INFORMATION SENT TO PATIENT.
[2021-05-19 18:33] LABS: E. Chaffeensis AB IGG <1:64; E. Chaffeensis AB IGM <1:20
[2021-05-19 22:24] LABS: RMSF IGG NOT DETECTED; RMSF IGM NOT DETECTED
[2021-05-20 07:22] LABS: HSV 1 DNA NOT DETECTED; HSV 2 DNA NOT DETECTED; HSV Source SERUM
[2021-05-20 15:17] LABS: Leptospira DNA QL NOT DETECTED; Leptospira Source WHOLE BLOOD
[2021-05-22 22:07] LABS: DNA AB (DS) CRITHIDIA,IFA NEGATIVE (NEGATIVE)
--- NOTE | 2021-06-04 20:58 | PC.NURSE ---
This nurse has attempted to chart a grove insertion on this patient and has been unsuccessful due to amount of time that has lapsed since admission. This nurse received an order from Dr. Clark Martell (ED) to place an indwelling grove on this patient on 05/14/21 at 2300. I placed at 16FR indwelling catheter using asceptic and sterile technique. The patient tolerated well and 100ml was drained from his urine bag after insertion and sent for UA.
== END 2021-05-18 13:20 | disposition home or self-care (01) ==
LOC: ER 05-15 14:57 → CSU 05-16 16:46
PROVIDERS: Emergency Medicine; Student in an Organized Health Care Education/Training Program; Admitting Provider Internal Medicine; Emergency Provider Family Medicine; PCP Physician Assistant; Visit Provider Internal Medicine
DX: K72.90 Hepatic failure, unspecified without coma (principal); F05 Delirium due to known physiological condition; R74.01 Elevation of levels of liver transaminase levels; K72.00 Acute and subacute hepatic failure without coma; T50.901A Poisoning by unspecified drugs, medicaments and biological substances, accidental (unintentional), initial encounter; F41.9 Anxiety disorder, unspecified; N40.0 Benign prostatic hyperplasia without lower urinary tract symptoms; J44.9 Chronic obstructive pulmonary disease, unspecified; Z79.891 Long term (current) use of opiate analgesic; Z87.891 Personal history of nicotine dependence; Z23 Encounter for immunization
CPT/HCPCS: 36415; 36600; 74177; 80051; 80053; 80306; 80307; 81003; 82140; 82330; 82550; 82805; 83605; 83615; 83690; 83735; 84145; 84484; 85025; 85610; 85730; 86160; 86162; 86235; 86255; 86376; 86618; 86664; 86665; 86666; 86705; 86706; 86709; 86757; 86803; 87040; 87340; 87350; 87426; 87496; 87530; 87635; 87798; 87806; 90471; 90732; 93005; 96365; 96366; 96367; 96372; 96375; 97162; 99291; 99292; G0378; J0132; J1650; J2270; J2310; J3480; J3490; J7030; J7040; Q9967

== ENCOUNTER 2021-09-26 11:08 | Emergency (ER) | payer OTHER, MEDICARE, MEDICAID, SELFPAY ==
[2021-09-26 11:23] VITALS: BP 149/87; PULSE 101; RESP 20; TEMP 37; O2SAT 99
--- NOTE | 2021-09-26 11:46 | XRR_ITS ---
PROCEDURE INFORMATION: Exam: XR Chest Exam date and time: 09/26/2021 11:46 AM Age: 76 years old Clinical indication: Shortness of breath; Additional info: SOB TECHNIQUE: Imaging protocol: XR of the chest. Views: 1 view. COMPARISON: CR XR chest 1V portable [id number] 04/17/2021 12:50 PM FINDINGS: Lungs: Unremarkable. No consolidation. Pleural spaces: Unremarkable. No pleural effusion. No pneumothorax. Heart/Mediastinum: Unremarkable. No cardiomegaly. Bones/joints: Unremarkable. XR/XR chest 1V portable [id number] IMPRESSION: No acute findings. Radiation Dose CTDIVOL = (mGy): DLP = (mGy-cm)
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
--- NOTE | 2021-09-29 11:44 | DCPLANNER ---
manager of business had message to schedule a follow up appointment for patient with [facility]. manager of business called [facility], spoke with Dora, gave clinic patients information. A follow up appointment was scheduled for Saturday, October 23, 2021 at 11:[address] Wilkins. Clinic has given patient the appointment information.
--- NOTE | 2021-10-26 15:16 | DCPLANNER ---
Patient had a follow up appointment scheduled for 10.23.21 with [facility] - patient did attend appointment.
== END 2021-09-26 13:34 | disposition home or self-care (01) ==
PROVIDERS: Emergency Provider Physician Assistant; PCP Physician Assistant
DX: G89.29 Other chronic pain (principal); M54.41 Lumbago with sciatica, right side; R06.02 Shortness of breath; J44.9 Chronic obstructive pulmonary disease, unspecified; Z87.891 Personal history of nicotine dependence
CPT/HCPCS: 71045; 99281

== ENCOUNTER 2022-05-03 13:06 | Outpatient (CLI) | payer OTHER, SELFPAY ==
--- NOTE | 2022-05-03 13:16 | MR_ITS ---
WS: [id number] MRI LUMBAR SPINE NONCONTRAST HISTORY: LOW BACK PAIN X 45 YEARS COMPARISON: 2005 TECHNIQUE: Sagittal and axial multisequence imaging is submitted. Significant thoracolumbar scoliosis. LEFT thoracolumbar scoliosis. Mid to distal lumbar curvature is to the RIGHT. Marked curvature the lumbar spine. Asymmetric narrowing of the disc spaces due to the scoliosis. Nusrat re disc space narrowing at L1-2, L2-3 and L3-4 and moderate L4-5. Reactive marrow edema within the ve rtebral bodies. Mild anterior wedging of L1. No acute fracture. Conus terminates normally at L1-2 disc level. T12-L1: Asymmetric disc bulging to the LEFT. Mild LEFT foraminal narrowing. No significant stenosis. L1-L2: Diffuse annular disc bulging and osteophytic ridging. Thecal sac is deformed and displaced to the RIGHT by the scoliosis. Moderate to severe RIGHT and mild LEFT foraminal stenosis. L2-L3: Diffuse marked osteophytic ridging and asymmetric disc bulging. Ligamentum flavum and facet ar thritis. Combination of factors resulting in moderate central with bilateral subarticular and foramin al stenosis. Most significant encroachment upon the traversing L3 nerve roots. L3-L4: Diffuse asymmetric disc bulging and osteophytic ridging. Marked ligamentum flavum hypertrophy and facet arthritis. Asymmetric disc bulges into the LEFT paracentral, LEFT foramen and extraforamina l region. Severe central stenosis with significant disc displacement of the LEFT lateral thecal sac a nd LEFT subarticular recess. Moderate to severe bilateral foraminal stenosis. L4-L5: Diffuse moderate annular disc bulging asymmetric and greatest to the LEFT. LEFT paracentral di sc protrusion with marked ligamentum flavum and facet arthritis. Severe central, LEFT subarticular an d LEFT foraminal stenosis. Moderate stenosis on the RIGHT. L5-S1: Mild annular disc bulge. RIGHT paracentral and proximal foraminal disc protrusion. Significant encroachment upon the RIGHT S1 nerve root. Mild central and bilateral foraminal stenosis. More signi ficant subarticular recess stenosis, greatest on the RIGHT. MR/MR lumbar spine wo con* [id number] IMPRESSION: 1. Severe cervical lumbar scoliosis. 2. Multilevel degenerative disc disease, vertebral body osteophytosis, ligamen poly flavum and facet arthritis. 3. Moderate to severe RIGHT and mild LEFT foraminal stenosis at L1-2. 4. Moderate central, bilateral subarticular recess and foraminal stenosis as a oriana. 5. Severe central with marked LEFT subarticular recess and foraminal stenosis at L3-4. Disc most significantly contacting the LEFT L3 and L4 nerve roots. 6. Severe central, LEFT subarticular and LEFT foraminal stenosis at L4-5 due t o disc osteophyte disease and facet arthritis. Severe encroachment upon the L4 and L5 nerve roots on the LEFT and moderate on the RIGHT. 7. RIGHT paracentral and subarticular recess disc protrusion contacts the RIGH T S1 nerve root. Mild central with bilateral subarticular and foraminal stenosi s.
== END 2022-05-03 13:07 | disposition home or self-care (01) ==
LOC: RAD 13:06
PROVIDERS: PCP Physician Assistant; Visit Provider Emergency Medicine Emergency Medical Services
DX: M54.50 Low back pain, unspecified (principal)
CPT/HCPCS: 72148

== ENCOUNTER 2022-09-30 14:51 | Observation (INO) | payer OTHER, SELFPAY ==
[2022-09-30] VITALS (22 sets, daily range): BP systolic 89–130; BP diastolic 56–72; PULSE 69–102; RESP 16–30; TEMP 36.4; O2SAT 93–99
--- NOTE | 2022-09-30 15:00 | XRR_ITS ---
PROCEDURE INFORMATION: Exam: XR Chest Exam date and time: 09/30/2022 3:14 PM Age: 77 years old Clinical indication: Cough and dyspnea; Additional info: Dyspnea/cough TECHNIQUE: Imaging protocol: Radiologic exam of the chest. Views: 1 view. COMPARISON: CR XR chest 1V portable [id number] 09/26/2021 11:58 AM FINDINGS: Lungs: Unremarkable. No consolidation. Pleural spaces: Unremarkable. No pleural effusion. No pneumothorax. Heart/Mediastinum: Unremarkable. No cardiomegaly. Bones/joints: Unremarkable. No interval changes are seen comparing to prior examination XR/XR chest 1V portable [id number] IMPRESSION: No acute findings.
--- NOTE | 2022-09-30 15:07 | ECG_ITS ---
[facility] Test Date: 2022-09-30 Pat Name: Rolando Jett Department: Room: Gender: Male Setter Out: : 1945 Requested By: Reuben Trent Order Number: [id number] Carlos MD: Vineet Schroeder M.D. Measurements Intervals [place] Rate: 80 P: 67 SC: 155 QRS: 51 QRSD: 94 T: 76 QT: 343 QTc: 398 Interpretive Statements SINUS RHYTHM NONSPECIFIC T-WAVE ABNORMALITY Compared to ECG 09/30/2022 15:07:29 T-wave abnormality now present Myocardial infarct finding no longer present Electronically Signed On 09-30-2022 19:43:32 MANAGER LEARNING by Vineet Schroeder M.D. [id number]
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
[2022-09-30] MEDS: ipratropium-albuterol 3 mL Neb INHALATION ×3 (15:17→20:56)
--- NOTE | 2022-09-30 15:29 | PC.NURSE ---
pt bp 85/58, physician notified. new orders being placed
[2022-09-30] MEDS: sodium chloride 0.9% 1,000 ML 999 ML IV (15:32)
[2022-09-30 15:33] LABS: Basophils % 0.5 %; Eosinophils # 0.1 10^3/uL (0.0-0.8); Eosinophils % 1.7 %; Hematocrit 44.7 % (42.0-52.0); Hemoglobin 14.2 g/dL (11.7-16.6); Lymphocytes % 12.7 %; Mean Corpuscular HGB Conc 31.8 g/dL (30.0-36.0); Mean Corpuscular Hemoglobin 28.9 pg (28.0-34.0); Mean Corpuscular Volume 90.9 fl (80-94); Mean Platelet Volume 10.3 fL (7.4-10.4); Monocytes # 0.3 10^3/uL (0.2-0.9); Monocytes % 4.3 %; Neutrophils % 80.7 %; Nucleated Red Blood Cells % 0 %; Platelet Count 233 10^3/cmm (130-400); Red Blood Count 4.92 10^6/uL (4.1-5.3); Red Cell Distribution Width 14.4 % (12.1-15.1); White Blood Count 7.7 10^3/uL (4.0-10.0)
[2022-09-30 15:37] LABS: ABG PCO2 38.1 mmHg (35-45); ABG PH Result 7.36 (7.35-7.45); Alveolar-Arterial Oxygen Gradi 10.6 mmHg (5-10); Arterial Blood Gas Hematocrit 40.4 % (42-52); Base Excess ABG -3.6 mmol/L (-2.0-2.0); Blood Gas Allen Test Pos; Blood Gas Operator Identificat CAK; Blood Gas Sample Site Radial, left; Blood Gas Sample Type Arterial; Carboxyhemoglobin 0.2 %THgb (0.4-20.1); HCO3 ABG 21.5 mmol/L (22-26); HGB O2 Sat 92.7 % (95-100); Ionized Calcium Level - ABG 1.2 mmol/L (1.1-1.4); Methemoglobin 0.9 % (0.4-1.5); Oxygen Device NC; Oxygen Saturation ABG 93.7; PO2 ABG 71.6 mmHg (80.0-100.0); Potassium Level - ABG 3.8 mmol/L (3.5-5.0); Total Hemoglobin 13.2 g/dL (14-18)
[2022-09-30 15:57] LABS: Anion Gap 11.8 (5-19); Blood Urea Nitrogen 21 mg/dL (8-23); Calcium 9.2 mg/dL (8.5-10.5); Carbon Dioxide 24 mmol/L (22-29); Chloride 97 mmol/L (98-107); Glucose 90 mg/dL (65-115); Osmolality Calculated 271 mOsm/kg (285-295); Potassium 3.8 mmol/L (3.5-5.1); Sodium 129 mmol/L (136-145)
--- NOTE | 2022-09-30 17:44 | CTR_ITS ---
PROCEDURE INFORMATION: Exam: CTA Chest With Contrast Exam date and time: 09/30/2022 6:53 PM Age: 77 years old Clinical indication: Shortness of breath; Additional info: SOB TECHNIQUE: Imaging protocol: Computed tomographic angiography of the chest with contrast. 3D rendering (Not supervised by radiologist): MIP and/or 3D reconstructed images were created by the technologist. Radiation optimization: All CT scans at this facility use at least one of these dose optimization techniques: automated exposure control; mA and/or kV adjustment per patient size (includes targeted exams where dose is matched to clinical indication); or iterative reconstruction. Contrast material: OMNIPAQUE 350; Contrast volume: 79 ml; Contrast route: INTRAVENOUS (IV); COMPARISON: CT angio chest PE protcl [id number] 11/11/2015 3:52 PM RADIATION DOSE METRICS: Total DLP (mGy-cm): 324.72 FINDINGS: Pulmonary arteries: The pulmonary arteries are adequately opacified for evaluation to the subsegmental level. There is no filling defect to suggest embolism. Aorta: There is mild aortic atherosclerotic disease. Thyroid: There is diffuse enlargement of the right lobe of the thyroid gland. Lungs: There is patchy ill-defined subpleural predominant reticulonodular and ground-glass opacity in both lungs. There is bronchial wall thickening in the lower lobes bilaterally. Pleural spaces: Unremarkable. No pneumothorax. No pleural effusion. Heart: Heart size is normal. There is no pericardial effusion. There is mild coronary artery calcification. Lymph nodes: There is no mediastinal or hilar lymphadenopathy. Liver: Multifocal hypodensities in the liver. The larger lesions are of water attenuation and measure up 14 mm diameter, consistent with cysts. The smaller lesions are too small to fully characterize. Findings are stable since 2016. Gallbladder and bile ducts: Gallbladder is distended and incompletely imaged. There is ectasia of the common bile duct and central intrahepatic ducts. No visible gallstones. Bones/joints: Bones are unremarkable. Soft tissues: The extrathoracic soft tissues are unremarkable. CT/CT angio chest PE protcl [id number] IMPRESSION: 1. No pulmonary embolism. 2. Moderate severity bilateral lung disease most likely represents infection. 3. Bilateral lower lobe bronchial wall thickening suggest bronchitis. 4. Incidental findings above.
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
[2022-09-30 18:10] LABS: ABG PCO2 34.4 mmHg (35-45); ABG PH Result 7.39 (7.35-7.45); Arterial Blood Gas Hematocrit 42.8 % (42-52); Base Excess ABG -3.5 mmol/L (-2.0-2.0); Blood Gas Allen Test Pos; Blood Gas Operator Identificat CAK; Blood Gas Sample Site Radial, left; Blood Gas Sample Type Arterial; HCO3 ABG 20.7 mmol/L (22-26); Oxygen Device BIPAP; PO2 ABG 94.2 mmHg (80.0-100.0)
[2022-09-30] MEDS: pantoprazole 40 mg SDV IVP (18:40)
[2022-09-30] MEDS: doxycycline 100 MG in sodium chloride 0.9% (plus) 100 ML IV (18:44)
[2022-09-30 18:49] LABS: C Reactive Protein 215.1 mg/L (0.0-4.9)
[2022-09-30 18:49] LABS: Lactic Sepsis W/Reflex 1.2 mmol/L (0.5-2.2)
[2022-09-30 18:52] LABS: Troponin(5th) Baseline 11 ng/L (0-15)
[2022-09-30] MEDS: iohexol 350 mg/mL 500 mL Btl (per mL) IV (18:56)
--- NOTE | 2022-09-30 19:13 | PC.NURSE ---
Report called to [facility] on Med Surg. Med surg to wait to transport pt to med surg until covid test results due to room is not private
--- NOTE | 2022-09-30 19:16 | PC.NURSE ---
report given to RODDY King in ER to assume care
[2022-09-30 19:24] LABS: Influenza A by IFA negative (Negative); Influenza B by IFA negative (Negative)
[2022-09-30 19:39] LABS: NT Pro B Type Natriuretic Pept 793 pg/mL (0-450); Procalcitonin 1.93 ng/mL (0-0.5)
[2022-09-30 20:10] LABS: Estmated Average Glucose 103; Hemoglobin A1C 5.2 % (4.0-6.0)
--- NOTE | 2022-09-30 20:34 | ECG_ITS ---
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 Measurements Intervals [place] Rate: 73 P: 83 [place]: 181 QRS: 61 QRSD: 98 T: 65 QT: 375 QTc: 416 Interpretive Statements SINUS RHYTHM Compared to ECG 09/30/2022 18:32:07 No significant changes Electronically Signed On 10-01-2022 19:07:38 FLOWER MACHINE OPERATOR by Vineet Schroeder M.D. [email or web address] (formerly known as [id number]
[2022-09-30 20:35] LABS: Troponin 5 2HR 8.97 ng/L (0-15)
[2022-09-30 20:50] LABS: Troponin 5 2HR Delta -2.03 ABS# (0-10)
[2022-09-30 20:52] LABS: Adenovirus Not Detected (NOT DETECT); Chlamydia Pneumoniae Not Detected (NOT DETECT); Coronavirus 229E,HKU1,NL63,OC4 Not Detected (NOT DETECT); Human Metapneumovirus Not Detected (NOT DETECT); Human Rhinovirus/Enterovirus Detected (NOT DETECT); Influenza A Not Detected (NOT DETECT); Influenza A H1 Not Detected (NOT DETECT); Influenza A H1-2009 Not Detected (NOT DETECT); Influenza A H3 Not Detected (NOT DETECT); Influenza B Not Detected (NOT DETECT); Mycoplasma Pneumoniae Not Detected (NOT DETECT); Parainfluenza Virus Type 1 Not Detected (NOT DETECT); Parainfluenza Virus Type 2 Not Detected (NOT DETECT); Parainfluenza Virus Type 3 Not Detected (NOT DETECT); Parainfluenza Virus Type 4 Not Detected (NOT DETECT); Respiratory Syncytial Virus A Not Detected (NOT DETECT); Respiratory Syncytial Virus B Not Detected (NOT DETECT); SARS-COV-2 Not Detected (NOT DETECT)
--- NOTE | 2022-09-30 20:52 | ECG_ITS ---
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 Measurements Intervals [place] Rate: 73 P: 0 [place]: 0 QRS: 57 QRSD: 97 T: 50 QT: 364 QTc: 404 Interpretive Statements SINUS RHYTHM Compared to ECG 09/30/2022 20:34:12 No significant changes Electronically Signed On 10-01-2022 19:07:33 TERRAZZO LAYER HELPER by Vineet Schroeder M.D. [id number]
[2022-09-30] MEDS: budesonide 0.5 mg/2 mL Neb INHALATION (20:56)
--- NOTE | 2022-09-30 21:30 | PC.NURSE ---
Pt came to desk screaming no one has been in my room for 4 hours , Amada been laying in my fucking room dying for four hours and no one came Pt advised that nurse had been in the room to bring water. Pt states thats bullshit no one has been in my room or came by to see if I was alive or PT CO bibpap being in place to keep him from getting more water. Pt refuses to sign AMA papers at this time but states he wants to go to the front where his family is waiting. Pt offered a wheelchair but declined.
--- NOTE | 2022-09-30 21:52 | PC.NURSE ---
patient found by nursing staff standing at doorway with bipap machine off and IV pulled out patient walking down the hallway dripping blood from IV site. patients arm bandaged and patient taken back to room. patient screaming at nursing staff stating no ones been in here for 4 hours and iv been screaming and im ready to get the hell out ohere. patient instructed of water being at bedside and multiple nurses in room and walking by and patient not waving or yelling . patient walked back to front end alignment specialist and standing cursing at nursing staff. patient SIgned AMA . Patients IV site wrapped and bleeding controlled upon first notice. patient in no obivous distress. patient ambulatory to [facility] with no difficulites. Provider notified.
[2022-09-30 21:55] LABS: Human Metapneumovirus Not Detected (NOT DETECT); Human Rhinovirus/Enterovirus Detected (NOT DETECT); Results from Genmark
--- NOTE | 2022-10-01 09:32 | PC.NURSE ---
Discharge Planning and Implementation all answered no due to patient leaving AMA and refusing to sign paperwork.
--- NOTE | 2022-10-01 09:34 | PC.NURSE ---
Pt left AMA 09/30/22 2922.
--- NOTE | 2022-10-02 13:52 | PM.DCS ---
Discharge Providers Date of Admission: 09/30/22 17:33 Date of Discharge: October 02, 2022 Attending Provider at Admission: John Hammond MD Attending Provider at Discharge: Arthur Rock MD Primary Care Provider: Sharda Montenegro Diagnoses at Discharge Discharge Diagnosis (1) Acute and chronic respiratory failure with hypoxia: Status: Acute (2) Acute exacerbation of chronic obstructive airways disease: Status: Acute (3) Tracheal stenosis: Status: Acute Reason for Visit Reason for Visit: SOB Hospital Course Hospital Course Rolando Jett is a 77 year old male with a past medical tree of COPD, history of BPH, iron deficiency anemia, PTSD, history of chronic opiate use, history of brain injury, history of tracheal stenosis, 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 CT-PE was negative for pulmonary embolism, revealing moderate severity bilateral lung disease and bronchitis. Patient was treated with Solumedrol, doxycycline, and breathing treatments. He left against medical advice prior to my evaluation. Physical Exam Narrative: Patient not examined as he left AMA prior to my evaluation. Discharge Data Studies Completed and Pending Completed Studies During Hospitalization Category Date Time Status CT angio chest PE protcl [id number] Stat Cat Scan 09/30/22 17:44 Completed XR chest 1V portable [id number] Stat Exams 09/30/22 15:00 Completed Pending at discharge Category Date Time Status Blood Culture Stat Lab 09/30/22 18:10 Results Radiology Impressions Chest X-Ray 09/30/22 15:00 IMPRESSION: No acute findings. Chest CTA 09/30/22 17:44 IMPRESSION: 1. No pulmonary embolism. 2. Moderate severity bilateral lung disease most likely represents infection. 3. Bilateral lower lobe bronchial wall thickening suggest bronchitis. 4. Incidental findings above. Laboratory Results WBC 7.7 10^3/uL (4.0-10.0) 09/30/22 15:18 RBC 4.92 10^6/uL (4.1-5.3) 09/30/22 15:18 Hgb 14.2 g/dL (11.7-16.6) 09/30/22 15:18 Hct 44.7 % (42.0-52.0) 09/30/22 15:18 MCV 90.9 fl (80-94) 09/30/22 15:18 MCH 28.9 pg (28.0-34.0) 09/30/22 15:18 MCHC 31.8 g/dL (30.0-36.0) 09/30/22 15:18 RDW 14.4 % (12.1-15.1) 09/30/22 15:18 Plt Count 233 10^3/cmm (130-400) 09/30/22 15:18 MPV 10.3 fL (7.4-10.4) 09/30/22 15:18 Neut % (Auto) 80.7 % 09/30/22 15:18 Lymph % (Auto) 12.7 % 09/30/22 15:18 [place] % (Auto) 4.3 % 09/30/22 15:18 Eos % (Auto) 1.7 % 09/30/22 15:18 Baso % (Auto) 0.5 % 09/30/22 15:18 Neut # (Auto) 6.20 10^3/uL (1.8-7.7) 09/30/22 15:18 Lymph # (Auto) 1.0 10^3/uL (0.8-4.8) 09/30/22 15:18 [place] # (Auto) 0.3 10^3/uL (0.2-0.9) 09/30/22 15:18 Eos # (Auto) 0.1 10^3/uL (0.0-0.8) 09/30/22 15:18 Baso # (Auto) 0.0 10^3/uL (0.0-0.1) 09/30/22 15:18 Nucleated RBC % (auto) 0 % 09/30/22 15:18 Nucleated RBCs # 0.0 /100WBC 09/30/22 15:18 Specimen Type Arterial 09/30/22 18:30 Sample Site Radial, left 09/30/22 18:30 ABG pH 7.39 (7.35-7.45) 09/30/22 18:30 ABG pCO2 34.4 mmHg (35-45) L 09/30/22 18:30 ABG pO2 94.2 mmHg (80.0-100.0) 09/30/22 18:30 ABG HCO3 20.7 mmol/L (22-26) L 09/30/22 18:30 ABG O2 Saturation 93.7 09/30/22 15:26 ABG Base Excess -3.5 mmol/L (-2.0-2.0) L 09/30/22 18:30 Krzysztof Test Pos 09/30/22 18:30 A-a O2 Gradient 10.6 mmHg (5-10) H 09/30/22 15:26 Hematocrit 42.8 % (42-52) 09/30/22 18:30 Hgb O2 Saturation 92.7 % (95-100) L 09/30/22 15:26 Carboxyhemoglobin 0.2 %THgb (0.4-20.1) L 09/30/22 15:26 Methemoglobin 0.9 % (0.4-1.5) 09/30/22 15:26 Total Hemoglobin 13.2 g/dL (14-18) L 09/30/22 15:26 Sodium 134.0 mmol/L (131-143) 09/30/22 15:26 Potassium 3.8 mmol/L (3.5-5.0) 09/30/22 15:26 Glucose 92.0 mg/dL (70-115) 09/30/22 15:26 Ionized Calcium 1.2 mmol/L (1.1-1.4) 09/30/22 15:26 O2 Delivery Device Bipap 09/30/22 18:30 O2 Liters/Min 2.0 % 09/30/22 15:26 FiO2 40.0 % 09/30/22 18:30 Apprenticeship Representative ID Cak 09/30/22 18:30 Sodium 129 mmol/L (136-145) L 09/30/22 15:18 Potassium 3.8 mmol/L (3.5-5.1) 09/30/22 15:18 Chloride 97 mmol/L (98-107) L 09/30/22 15:18 Carbon Dioxide 24 mmol/L (22-29) 09/30/22 15:18 Anion Gap 11.8 (5-19) 09/30/22 15:18 BUN 21 mg/dL (8-23) 09/30/22 15:18 Creatinine 0.9 mg/dL (0.7-1.2) 09/30/22 15:18 GFR Calculation Not Reportable 09/30/22 15:18 Glucose 90 mg/dL (65-115) 09/30/22 15:18 Estimat Average Glucose 103 09/30/22 15:18 Hemoglobin A1c 5.2 % (4.0-6.0) 09/30/22 15:18 Calculated Osmolality 271 mOsm/kg (285-295) L 09/30/22 15:18 Lactic Acid 1.2 mmol/L (0.5-2.2) 09/30/22 18:01 Calcium 9.2 mg/dL (8.5-10.5) 09/30/22 15:18 Troponin T Baseline 11 ng/L (0-15) 09/30/22 18:01 Troponin T 120 Minute 8.97 ng/L (0-15) 09/30/22 20:07 Delta Troponin T -2.03 ABS# (0-10) L 09/30/22 20:07 C-Reactive Protein 215.1 mg/L (0.0-4.9) H 09/30/22 15:18 NT-Pro-B Natriuret Pep 793 pg/mL (0-450) H 09/30/22 15:18 Procalcitonin 1.93 ng/mL (0-0.5) H 09/30/22 15:18 TSH 1.20 uIU/mL (0.27-4.20) 09/30/22 15:18 Coronavirus 229E (PCR) Not detected (NOT DETECT) 09/30/22 18:33 Human Metapneumovir PCR Not detected (NOT DETECT) 09/30/22 21:55 Influenza Type A Ag negative (Negative) 09/30/22 18:33 Influenza Type B Ag negative (Negative) 09/30/22 18:33 Entero/Rhino (PCR) Detected (NOT DETECT) A 09/30/22 21:55 SARS-CoV-2 (PCR) Not detected (NOT DETECT) 09/30/22 18:33 Vitals Last Vital Signs Temp 97.6 F 09/30/22 14:53 Pulse 74 09/30/22 20:57 Resp 22 H 09/30/22 20:57 BP 122/72 09/30/22 18:30 Pulse Ox 99 09/30/22 20:57 O2 Del Method 09/30/22 20:57 O2 Flow Rate 2 09/30/22 16:06 FiO2 40 09/30/22 20:57 Discharge Plan Discharge Patient Disposition: Left Against Medical Advice Condition: Stable Prescriptions: No Action celecoxib 200 mg capsule 200 mg PO BID tamsulosin 0.4 mg capsule 0.4 mg PO BEDTIME albuterol sulfate 90 mcg/actuation HFA aerosol inhaler 2 puff INHALATION QID PRN (Reason: Shortness Of Breath) risperidone 0.5 mg tablet See Rx Instructions .ROUTE .COMPLEX Rx Instructions: take 1 tab in the morning and 2 tab at bedtime. gabapentin 300 mg capsule 300 mg PO TID Spiriva with HandiHaler 18 mcg Capsule, W/Inhalation Device 1 cap INHALATION DAILY hydrocodone-acetaminophen 10-325 mg tablet 1 tab PO Q6H PRN (Reason: Pain) cyclobenzaprine 10 mg tablet 10 mg PO TID PRN (Reason: Pain) sertraline 100 mg Tablet 150 mg PO DAILY Vitamin D3 50 mcg (2,000 unit) Capsule 50 mcg PO DAILY naloxone 8 mg/actuation [place],Non-Aerosol 1 spray INTRANASAL Q3M PRN (Reason: Opioid Overdose) Rx Instructions: spray 1 dose into ONE nostril; alternate nostrils w each dose until help arrives doxycycline hyclate 100 mg capsule 100 mg PO BID 10 Days Qty: 20 0RF prednisone 20 mg tablet 20 mg PO TID Qty: 15 0RF Rx Instructions: 1 p.o. 3 times daily x3 days, 1 p.o. twice daily x2 days, 1 p.o. daily x2 days ipratropium-albuterol 0.5 mg-3 mg(2.5 mg base)/3 mL solution for nebulization 3 ml inhalation Q4H PRN (Reason: shortness of breath or wheezing) Qty: 180 0RF Rx Instructions: until breathing returns to target peak flow/parameters Referrals: Sharda Montenegro PA [Primary Care Provider] - Patient Instructions: Opioid Safety Discharge Attestations Time Spent in Discharge Care*: greater than 30 min Status at Discharge: Cognitive status at discharge: cognitively intact, Behavioral status at discharge: can be uncooperative, Quality Metrics Clinical Quality Measures [ No reported AMI, CVA or VTE this stay] Coding Level of Care Code Acute Chg FW DC note Diagnoses Acute and chronic respiratory failure with hypoxia J96.21 Acute exacerbation of chronic obstructive airways disease J44.1 Tracheal stenosis J39.8
== END 2022-10-01 09:34 | disposition left against medical advice (07) ==
LOC: ER 17:54 → MEDSURG 18:43
PROVIDERS: Admitting Provider Family Medicine; Emergency Provider Family Medicine; PCP Physician Assistant; Visit Provider Internal Medicine
DX: J96.21 Acute and chronic respiratory failure with hypoxia (principal); J44.1 Chronic obstructive pulmonary disease with (acute) exacerbation; J39.8 Other specified diseases of upper respiratory tract; N40.0 Benign prostatic hyperplasia without lower urinary tract symptoms; Z79.891 Long term (current) use of opiate analgesic; Z87.820 Personal history of traumatic brain injury; D50.9 Iron deficiency anemia, unspecified; Z66 Do not resuscitate; F41.9 Anxiety disorder, unspecified; Z87.891 Personal history of nicotine dependence; Z99.81 Dependence on supplemental oxygen
CPT/HCPCS: 36415; 36600; 71045; 71275; 80048; 80051; 82330; 82803; 82805; 83036; 83605; 83880; 84145; 84443; 84484; 85025; 86140; 87040; 87635; 87801; 87804; 93005; 94640; 94660; 96361; 96374; 96375; 99291; C9113; G0378; J2930; J3490; J7030; J7626; Q9967

== ENCOUNTER 2022-10-01 10:34 | Emergency (ER) | payer OTHER, SELFPAY ==
[2022-10-01 10:44] VITALS: BP 103/67; PULSE 98; RESP 21; TEMP 37; O2SAT 96; BMI 18.6
--- NOTE | 2022-10-01 10:48 | ECG_ITS ---
[facility] Test Date: 2022-10-01 Pat Name: Rolando Jett Department: Room: Gender: Male Van Helper: : 1945 Requested By: Reuben Trent Order Number: [id number] Carlos MD: Vineet Schroeder M.D. Measurements Intervals [place] Rate: 94 P: 66 [place]: 169 QRS: 63 QRSD: 90 T: 67 QT: 328 QTc: 411 Interpretive Statements SINUS RHYTHM NONSPECIFIC T-WAVE ABNORMALITY Compared to ECG 09/30/2022 20:52:12 T-wave abnormality now present Electronically Signed On 10-01-2022 19:03:54 EDUCATIONAL PSYCHOLOGY PROFESSOR by Vineet Schroeder M.D. [id number]
--- NOTE | 2022-10-01 10:48 | ECG_ITS ---
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 Measurements Intervals [place] Rate: 70 P: 63 [place]: 165 QRS: 39 QRSD: 91 T: 54 QT: 356 QTc: 385 Interpretive Statements SINUS RHYTHM Compared to ECG 09/30/2022 15:31:55 T-wave abnormality no longer present Electronically Signed On 10-01-2022 19:05:28 HOME ADVISOR by Vineet Schroeder M.D. [id number]
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
[2022-10-01] MEDS: ipratropium-albuterol 3 mL Neb INHALATION (11:09)
[2022-10-01 11:19] VITALS: PULSE 98; O2SAT 96
[2022-10-01 11:30] LABS: ABG PCO2 33.7 mmHg (35-45); ABG PH Result 7.42 (7.35-7.45); Alveolar-Arterial Oxygen Gradi 13.7 mmHg (5-10); Blood Gas LPM 2.5 %; Blood Gas Operator Identificat AMH; Blood Gas Sample Site Brachial, right; Blood Gas Sample Type Arterial; Carboxyhemoglobin < 1.0 %THgb (0.4-20.1); HCO3 ABG 21.8 mmol/L (22-26); HGB O2 Sat 92.2 % (95-100); Ionized Calcium Level - ABG 1.2 mmol/L (1.1-1.4); Methemoglobin 0.4 % (0.4-1.5); Oxygen Device NC; Oxygen Saturation ABG 92.8; PO2 ABG 65.2 mmHg (80.0-100.0); Potassium Level - ABG 3.6 mmol/L (3.5-5.0); Total Hemoglobin 12.4 g/dL (14-18)
[2022-10-01 11:34] LABS: Basophils % 0.6 %; Hematocrit 38.8 % (42.0-52.0); Hemoglobin 12.5 g/dL (11.7-16.6); Lymphocytes # 0.4 10^3/uL (0.8-4.8); Lymphocytes % 7.7 %; Mean Corpuscular HGB Conc 32.2 g/dL (30.0-36.0); Mean Corpuscular Hemoglobin 28.7 pg (28.0-34.0); Mean Platelet Volume 10.1 fL (7.4-10.4); Monocytes # 0.2 10^3/uL (0.2-0.9); Monocytes % 4.1 %; Neutrophils # 4.65 10^3/uL (1.8-7.7); Neutrophils % 87.2 %; Nucleated Red Blood Cells % 0 %; Platelet Count 215 10^3/cmm (130-400); Red Blood Count 4.36 10^6/uL (4.1-5.3); Red Cell Distribution Width 14.5 % (12.1-15.1); White Blood Count 5.3 10^3/uL (4.0-10.0)
[2022-10-01 11:35] VITALS: PULSE 95; RESP 21; O2SAT 96
[2022-10-01 11:42] LABS: Slide Review Slide Review Perform
[2022-10-01 11:58] LABS: Anion Gap 12.8 (5-19); Blood Urea Nitrogen 19 mg/dL (8-23); Carbon Dioxide 22 mmol/L (22-29); Chloride 100 mmol/L (98-107); Glucose 106 mg/dL (65-115); Osmolality Calculated 275 mOsm/kg (285-295); Potassium 3.8 mmol/L (3.5-5.1); Sodium 131 mmol/L (136-145)
[2022-10-01 13:14] VITALS: BP 125/70; PULSE 97; RESP 14; O2SAT 96
== END 2022-10-01 13:45 | disposition home or self-care (01) ==
PROVIDERS: Emergency Provider Family Medicine; PCP Physician Assistant
DX: J44.1 Chronic obstructive pulmonary disease with (acute) exacerbation (principal); Z87.891 Personal history of nicotine dependence; Z99.81 Dependence on supplemental oxygen
CPT/HCPCS: 36415; 36600; 80048; 80051; 82330; 82805; 85025; 93005; 94640; 96374; 99285; J2930

== ENCOUNTER 2022-10-09 18:40 | Emergency (ER) | payer OTHER, SELFPAY ==
[2022-10-09 18:43] VITALS: BP 129/71; PULSE 80; RESP 19; TEMP 36.6; O2SAT 94; BMI 24.2
--- NOTE | 2022-10-09 18:43 | XRR_ITS ---
PROCEDURE INFORMATION: Exam: XR Chest Exam date and time: 10/09/2022 6:54 PM Age: 77 years old Clinical indication: Cough; Additional info: SOB TECHNIQUE: Imaging protocol: Radiologic exam of the chest. Views: 1 view. COMPARISON: CR (CHEST, ) 09/30/2022 3:14 PM FINDINGS: Lungs: Patchy bibasilar atelectasis versus minimal infiltrate. Pleural spaces: Unremarkable. No pleural effusion. No pneumothorax. Heart/Mediastinum: Unremarkable. No cardiomegaly. Bones/joints: Unremarkable. XR/XR chest 1V portable [id number] IMPRESSION: Patchy bibasilar atelectasis versus minimal infiltrate.
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
[2022-10-09] MEDS: ipratropium-albuterol 3 mL Neb INHALATION (20:05)
[2022-10-09 20:08] VITALS: PULSE 66; RESP 16; O2SAT 96
[2022-10-09] MEDS: benzonatate 100 mg Capsule PO (20:12)
[2022-10-09 20:15] LABS: Influenza A by IFA negative (Negative); Influenza B by IFA negative (Negative)
--- NOTE | 2022-10-09 20:19 | ECG_ITS ---
[facility] Test Date: 2022-10-09 Pat Name: Rolando Jett Department: Room: Gender: Male Phone Manager: : [phone] Requested By: Aelc Gabriel Order Number: [id number] Carlos MD: Tamiko Maria M.D. Measurements Intervals [place] Rate: 69 P: 60 AL: 169 QRS: 23 QRSD: 93 T: 44 QT: 387 QTc: 416 Interpretive Statements SINUS RHYTHM Compared to ECG 10/01/2022 11:12:00 T-wave abnormality no longer present Electronically Signed On 10-10-2022 0:06:44 CAR COOPER by Tamiko Maria M.D. [id number]
[2022-10-09 20:30] VITALS: PULSE 79; RESP 18; O2SAT 95
[2022-10-09] MEDS: predniSONE 20 mg Tablet 60 MG PO (20:31)
[2022-10-09] MEDS: albuterol 2.5 mg/3 mL Neb INHALATION (20:59)
[2022-10-09 21:01] VITALS: PULSE 76; RESP 16; O2SAT 96
[2022-10-09 21:05] LABS: Basophils % 0.2 %; Eosinophils # 0.3 10^3/uL (0.0-0.8); Eosinophils % 2.3 %; Hematocrit 37.3 % (42.0-52.0); Hemoglobin 12.3 g/dL (11.7-16.6); Lymphocytes # 1.8 10^3/uL (0.8-4.8); Mean Corpuscular Hemoglobin 28.7 pg (28.0-34.0); Mean Corpuscular Volume 87.1 fl (80-94); Mean Platelet Volume 9.2 fL (7.4-10.4); Monocytes # 0.6 10^3/uL (0.2-0.9); Monocytes % 4.7 %; Neutrophils % 76.3 %; Nucleated Red Blood Cells % 0 %; Platelet Count 322 10^3/cmm (130-400); Red Blood Count 4.28 10^6/uL (4.1-5.3); White Blood Count 12.1 10^3/uL (4.0-10.0)
[2022-10-09 21:32] LABS: Alanine Aminotransferase 11 U/L (0-41); Albumin Level 2.9 g/dL (3.5-5.2); Alkaline Phosphatase 69 U/L (40-130); Anion Gap 14.7 (5-19); Aspartate Amino Transferase 8 U/L (0-40); Blood Urea Nitrogen 10 mg/dL (8-23); Calcium 8.4 mg/dL (8.5-10.5); Carbon Dioxide 22 mmol/L (22-29); Chloride 102 mmol/L (98-107); Globulin 3.1 g/dL (1.3-4.6); Glucose 101 mg/dL (65-115); NT Pro B Type Natriuretic Pept 252 pg/mL (0-450); Osmolality Calculated 279 mOsm/kg (285-295); Potassium 3.7 mmol/L (3.5-5.1); Sodium 135 mmol/L (136-145); Total Bilirubin 0.2 mg/dL (0.15-1.2)
--- NOTE | 2022-10-09 21:46 | PC.NURSE ---
Pt asking continuously throughout visit if he can leave. Pt stated that he received an oxygen tank but it is empty now, I asked what company the oxygen is with and he and his family stated HOME. I had HOME come to pt room to correct oxygen issue at pt home but HOME states they do not service this pt. I advised pt I will call [facility] [place] to see if they have been servicing the pt with oxygen. Pt states he does not want to to wait and just wants to go home. I advised provider and he advised to have pt sign out AMA if he does not want to wait on [facility] [place]. Pt signed AMA forms with instruction to use portable oxygen tank as well as contact [facility] [place] in the morning to try and get more oxygen at home
== END 2022-10-09 21:50 | disposition left against medical advice (07) ==
PROVIDERS: Emergency Medicine; Emergency Provider Emergency Medicine; PCP Physician Assistant
DX: J44.1 Chronic obstructive pulmonary disease with (acute) exacerbation (principal); Z53.21 Procedure and treatment not carried out due to patient leaving prior to being seen by health care provider; Z87.891 Personal history of nicotine dependence
CPT/HCPCS: 71045; 80053; 83880; 85025; 87804; 93005; 94640; 99285; J7512; J7613